=== PATIENT | male | born 1935 | race Caucasian/White ===

== ENCOUNTER 2019-01-12 15:46 | Outpatient (CLI) | END 2019-01-12 15:47 | disposition home or self-care (01) | LOC: RHC-LAB 15:46 | PROVIDERS: ATTEND General Practice | DX: Z01.818 Encounter for other preprocedural examination (principal); Z00.00 Encounter for general adult medical examination without abnormal findings; R05 Cough; E78.5 Hyperlipidemia, unspecified; Z79.899 Other long term (current) drug therapy ==

== ENCOUNTER 2019-01-12 15:52 | Outpatient (CLI) ==
--- NOTE | 2019-01-12 16:16 | DI ---
EXAM: Two views of the chest. History: Cough. Findings: Heart is enlarged with left ventricular configuration. Sternotomy wires. Tortuous thorac ic aorta which may be aneurysmal. No consolidated pneumonia. No pleural fluid and no pneumothorax. 5 mm nodular density within the right upper lung. Impression: 1. Cardiomegaly with left ventricular configuration. 2. Tortuous thoracic aorta which may be aneurysmal. 3. 5 mm nodule within the right upper lung. Recommend chest CT
== END 2019-01-12 15:53 | disposition home or self-care (01) ==
LOC: RAD 15:52
PROVIDERS: ATTEND General Practice
DX: Z01.818 Encounter for other preprocedural examination (principal); R05 Cough; Z00.00 Encounter for general adult medical examination without abnormal findings; E78.5 Hyperlipidemia, unspecified; Z79.899 Other long term (current) drug therapy
CPT/HCPCS: 36415; 80053; 80061; 81001; 85025; 93005; 93010

== ENCOUNTER 2019-01-20 10:35 | Outpatient (CLI) | payer OTHER ==
--- NOTE | 2019-01-20 12:31 | CT ---
EXAM: CT of the chest without contrast History: Right lung nodule. Comparison: Chest radiograph 01/12/2019 Technique: Multiplanar CT images through the thorax were obtained without the administration of IV c ontrast. Findings: Heart is mildly enlarged. Coronary calcifications. Sternotomy wires. No pericardial eff usion. The thoracic aorta is tortuous. 4 cm ascending aortic aneurysm. No axillary lymphadenopathy . No pathologically enlarged mediastinal lymph nodes. Evaluation for hilar lymph nodes is limited d ue to the lack of IV contrast but no bulky adenopathy is seen. There are calcified mediastinal and h ilar lymph nodes. No consolidated pneumonia. No pleural fluid and no pneumothorax. 5 mm calcified nodule within the right upper lobe. This correlates with findings on recent chest radiograph. No carpio spicious lung masses or lung nodules. Within the visualized upper abdomen, status post cholecystectomy. Calcified granulomas within the sp christiano. Small partially visualized cyst within the left kidney. No acute osseous abnormalities. 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 Impression: 1. No acute intrathoracic process. 2. Old granulomatous disease. 3. No suspicious lung masses or lung nodules. 4. Cardiomegaly and coronary artery disease. 5. 4 cm aneurysm of the ascending aorta
== END 2019-01-20 10:36 | disposition home or self-care (01) ==
LOC: RAD 10:35
PROVIDERS: ATTEND General Practice
DX: R91.1 Solitary pulmonary nodule (principal)

== ENCOUNTER 2019-01-26 06:07 | Day surgery (SDC) | payer OTHER ==
[2019-01-26] MEDS: AK-DILATE 10% OPTH SOL OP PRN ×4 (06:20→06:50)
[2019-01-26] MEDS: OCUFEN 0.03% OPTH SOL OP PRN ×3 (06:20→06:35)
[2019-01-26] MEDS: CYCLOGYL 2% OPTH OP PRN ×3 (06:20→06:30)
[2019-01-26] MEDS: TETRACAINE 0.5% UNIT-DOSE OP PRN ×4 (06:20→08:39)
[2019-01-26 06:47] VITALS: TEMP 97.8
[2019-01-26] MEDS ORDERED: DIAMOX PO STA (06:48)
[2019-01-26] MEDS ORDERED: BSS WITH EPINEPHRINE OP ONE (06:48)
[2019-01-26] MEDS ORDERED: LIDOCAINE 1% 20 ML MDV ID STA (06:48)
[2019-01-26] MEDS ORDERED: VERSED ONE (08:15)
[2019-01-26] MEDS ORDERED: LIDOCAINE 1% 20 ML MDV ONE (08:40)
[2019-01-26 11:45] VITALS: BP 152/74
[2019-01-26] MEDS ORDERED: PRED FORTE 1% OP PRN (13:38)
[2019-01-26] MEDS ORDERED: OCUFLOX 0.3% OPTH SOL OP PRN (13:38)
[2019-01-26] MEDS ORDERED: BETADINE OPTH PREP OP ONE (13:38)
[2019-01-26] MEDS ORDERED: ERYTHROMYCIN OP STA (14:16)
[2019-01-26] MEDS ORDERED: MARCAINE 0.5% MDV INJ STA (14:20)
--- NOTE | 2019-01-27 09:13 | OP ---
PREOPERATIVE DIAGNOSIS: CATARACT, CORTICAL PLUS NUCLEAR SCLEROTIC, RIGHT EYE. POSTOPERATIVE DIAGNOSIS: SAME. OPERATION PHACOEMULSIFICATION ASPIRATION OF CATARACT RIGHT EYE. PLACEMENT OF POSTERIOR CHAMBER LENS. PHACO TIME SECONDS AT 39.8 @ 8.0% POWER. LENS MODEL TECSARA [id number]. DIOPTER +18.5D. TECHNIQUE: CLEAR CORNEA. ANESTHESIA: TOPICAL ANESTHESIA W/ANESTHESIA MONITORING. OPERATIVE REPORT: Topical anesthesia consisting of Tetracaine was applied to the cornea and Xylocaine Methyl Paraben free of MFP was injected intracamerally into the anterior chamber. The patient was then brought into the operating room , prepped and draped in the usual ophthalmic manner. A lid speculum was placed and the operating microscope was used. A paracentesis was made at the 3 o' clock position. A clear corneal incision was made just out to the limbus. The anterior chamber was entered just inside the clear cornea. Viscoelastic was injected into the anterior chamber. A capsulotomy was performed with a bent # 27 gauge needle. Phacoemulsification was then performed in the posterior chamber. After completion of the phacoemulsification, residual cortical material was aspirated with the irrigation-aspiration system. The posterior capsule was polished. Viscoelastic was injected into the anterior and posterior chambers to inflate the capsular bag. Lens were placed via an Unfolder system and stabilized in the bag. Viscoelastic was removed from the anterior chamber. The wound was checked for any leakage. The four sponges were removed from the fornix. Topical antibiotic steroid and nonsteroidal drops were also applied to the cornea. A Amado shield was applied. The patient left the operating room in good condition without any complications. INTRAOPERATIVE MEDICATIONS: Xylocaine Methyl Paraben Free MPF MTDD
--- NOTE | 2019-01-27 09:21 | OP ---
PREOPERATIVE DIAGNOSIS: SEVERE PTOSIS ECTROPION OF LEFT LOWER LID BLEPHARITIS POSTOPERATIVE DIAGNOSIS: SAME OPERATION: ENTROPION REPAIR USING TARSAL STRIP AND MEDIAL SPINDLE, LEFT LOWER LID ANESTHESIA: LOCAL. TECHNIQUE: The patient received local anesthetic consisting of 2% Xylocaine mixed with 0.5% Epinephrine and Wydase was infiltrated into the left lower lid and lateral canthus. The skin was prepped with Betadine. Lateral canthotomy was performed and transection of the inferior canthal tendon was performed to marbleize the lateral tarsal strip. Medial spindle was also performed at 5 mm below the inferior punctum. Tarsal strip was trimmed and excess was transected. The strip was then sutured with 4-0 Vicryl on P-2 needle to the inner periosteum of the lateral canthus. The medial spindle defect was closed with 5-0 Chromic suture with the needle exiting on the skin side. The subcuticular layer on the lateral canthus was closed with 5-0 Vicryl. Excess skin was excised and incision closed with 6-0 Plain. The medial spindle sutures were tied over a bolster and the 3-1-1 knot. The excess was trimmed. Maxitrol ointment was applied to incisions. The patient left the operating room in good condition without any complications. Estimated blood loss less than 5 cc. MTDD
== END 2019-01-26 09:59 | disposition home or self-care (01) ==
LOC: SURG 06:07
PROVIDERS: ATTEND Ophthalmology
DX: H25.13 Age-related nuclear cataract, bilateral (principal); H25.013 Cortical age-related cataract, bilateral; H02.135 Senile ectropion of left lower eyelid; H02.403 Unspecified ptosis of bilateral eyelids; H01.001 Unspecified blepharitis right upper eyelid; H01.002 Unspecified blepharitis right lower eyelid; H01.004 Unspecified blepharitis left upper eyelid; H01.005 Unspecified blepharitis left lower eyelid

== ENCOUNTER 2019-02-23 07:46 | Day surgery (SDC) | payer OTHER ==
[2019-02-23] MEDS: CYCLOGYL 2% OPTH OP PRN ×3 (09:15→09:25)
[2019-02-23] MEDS: TETRACAINE 0.5% UNIT-DOSE OP PRN ×4 (09:15→10:49)
[2019-02-23] MEDS: OCUFEN 0.03% OPTH SOL OP PRN ×4 (09:16→11:06)
[2019-02-23] MEDS ORDERED: DIAMOX PO STA (09:27)
[2019-02-23] MEDS ORDERED: ZESTRIL PO STA (09:30)
[2019-02-23] MEDS: LIDOCAINE 1% 20 ML MDV ID STA ×2 (09:35→10:50)
[2019-02-23 09:55] VITALS: TEMP 97.8
[2019-02-23] MEDS ORDERED: VERSED ONE (10:45)
[2019-02-23] MEDS ORDERED: DIAMOX ONE (11:20)
[2019-02-23 13:09] VITALS: BP 132/68
--- NOTE | 2019-02-23 13:31 | OP ---
PREOPERATIVE DIAGNOSIS:VISUALLY SIGNIFICANT CATARACT, LEFT EYE. POSTOPERATIVE DIAGNOSIS: SAME. OPERATION PHACOEMULSIFICATION ASPIRATION OF CATARACT LEFT EYE. PLACEMENT OF POSTERIOR CHAMBER LENS. PHACO TIME 48.1 SECONDS AT 5.0% POWER. LENS MODEL TECSARA [id number]. DIOPTER +18.5D. TECHNIQUE: CLEAR CORNEA. ANESTHESIA: TOPICAL ANESTHESIA W/ANESTHESIA MONITORING. OPERATIVE REPORT: Topical anesthesia consisting of Tetracaine was applied to the cornea and Xylocaine Methyl Paraben free of MFP was injected intracamerally into the anterior chamber. The patient was then brought into the operating room , prepped and draped in the usual ophthalmic manner. A lid speculum was placed and the operating microscope was used. A paracentesis was made at the 3 o' clock position. A clear corneal incision was made just out to the limbus. The anterior chamber was entered just inside the clear cornea. Viscoelastic was injected into the anterior chamber. A capsulotomy was performed with a bent # 27 gauge needle. Phacoemulsification was then performed in the posterior chamber. After completion of the phacoemulsification, residual cortical material was aspirated with the irrigation-aspiration system. The posterior capsule was polished. Viscoelastic was injected into the anterior and posterior chambers to inflate the capsular bag. Lens were placed via an Unfolder system and stabilized in the bag. Viscoelastic was removed from the anterior chamber. The wound was checked for any leakage. The four sponges were removed from the fornix. Topical antibiotic steroid and nonsteroidal drops were also applied to the cornea. A Amado shield was applied. The patient left the operating room in good condition without any complications. INTRAOPERATIVE MEDICATIONS: Xylocaine Methyl Paraben Free MPF MTDD
== END 2019-02-23 11:50 | disposition home or self-care (01) ==
LOC: SURG 07:46
PROVIDERS: ATTEND Ophthalmology
DX: H25.12 Age-related nuclear cataract, left eye (principal); H25.012 Cortical age-related cataract, left eye; Z96.1 Presence of intraocular lens

== ENCOUNTER 2021-12-24 20:13 | Inpatient (IN) ==
[2021-12-24] MEDS ORDERED: LACTATED RINGERS 1,000 ML IV STA (20:41)
--- NOTE | 2021-12-24 20:55 | ED.PDOC ---
General ED Provider: Dr. ALEIDA CRUZ Chief Complaint: Weakness Stated Complaint: Patient is an 86 year old male [place] who comes to the ER with weakness for few days. States he has had urinary incontinence. Lives alone but son comes to check up on him. He has not been eating well over the last few weeks. Time Seen by Provider: 12/24/21 20:37 Mode of Arrival: Wheelchair Information Source: Patient Primary Care Provider: LETTY LARES MD Nursing and Triage Documentation Reviewed and Agree: Yes Does patient meet sepsis criteria?: No System Inflammatory Response Syndrome: Not Applicable Sepsis Protocol: For patient's 13 years and over: Temp is 96.8 and below OR 101 and greater Pulse >90 BPM Resp >20/minute Acutely Altered Mental Status Are patient's symptoms suggestive of a new infection, such as: -Pneumonia -Skin, Soft Tissue -Endocarditis -UTI -Bone, Joint Infection -Implantable Device -Acute Abdominal Infection -Wound Infection -Meningitis -Blood Stream Catheter Infection -Unknown Review of Systems Review Of Systems Constitutional: Reports Weakness and Loss of appetite Eyes: Reports No symptoms Ears, Nose, Mouth, Throat: Reports No symptoms Respiratory: Reports No symptoms Cardiac: Reports No symptoms GI: Reports No symptoms : Reports Incontinence Musculoskeletal: Reports No symptoms Skin: Reports No symptoms Neurological: Reports No symptoms Endocrine: Reports No symptoms Hematologic/Lymphatic: Reports No symptoms All Other Systems: Reviewed and Negative [facility] Medical History Hypertension Thyroid dysfunction Social History Smoking and tobacco status: Never smoker Alcohol intake: never Substance use type: does not use Surgical History History of heart surgery History of prostatectomy Physical Exam Physical Exam Appearance: Reports Ill-appearing Ill-appearing: Mild Pain Distress: None Eyes: Reports SOCRATES and EOMI ENT: Reports Nose normal, Oropharynx normal (poor dentiation ) and Dry mucosa Neck: Supple Respiratory: Reports Airway patent, Breath sounds clear and Breath sounds equal Cardiovascular: Reports RRR, Pulses normal and No rub GI/: Reports Soft, Nontender, No masses and Bowel sounds normal Musculoskeletal: Reports Normal strength, ROM intact, No edema, No calf tender ness and Limited ROM Skin: Reports Warm, Dry and Normal color Neurological: Reports Motor intact, Alert and Oriented Psychiatric: Reports Affect appropriate and Mood appropriate Critical Care Note Critical Care Note Total Critical Care Time (mins): 30 Course Course Hematology/Chemistry: 12/24/21 20:55 12/24/21 20:55 Orders, Labs, Meds: Lab Review 12/24/21 12/24/21 12/24/21 20:55 20:55 20:55 WBC 12.94 H RBC 4.44 L Hgb 13.7 L Hct 39.7 L MCV 89.4 MCH 30.9 MCHC 34.5 RDW Coeff of Noah 12.9 Plt Count 208 Immature Gran % (Auto) 0.9 Neut % (Auto) 83.1 H Lymph % (Auto) 9.5 L [place] % (Auto) 6.2 Eos % (Auto) 0.1 Baso % (Auto) 0.2 Neut # (Auto) 10.8 H Lymph # (Auto) 1.2 [place] # (Auto) 0.8 Eos # (Auto) 0.0 Baso # (Auto) 0.0 Immature Gran # (Auto) 0.1 Sodium 131.8 L Potassium 2.78 L* Chloride 93.7 L Carbon Dioxide 30.6 H Anion Gap 10.28 BUN 21.0 H Creatinine 1.09 Estimated GFR (MDRD) 64.00 BUN/Creatinine Ratio 19.26 Glucose 133.9 H Lactic Acid Calcium 9.51 Total Bilirubin 1.11 AST 90.6 H ALT 63.6 H Alkaline Phosphatase 112.7 Total Creatine Kinase Troponin I Total Protein 6.44 Albumin 3.21 L Globulin 3.23 Albumin/Globulin Ratio 0.99 Procalcitonin 0.43 H 12/24/21 12/24/21 20:55 20:55 WBC RBC Hgb Hct MCV MCH MCHC RDW Coeff of Noah Plt Count Immature Gran % (Auto) Neut % (Auto) Lymph % (Auto) [place] % (Auto) Eos % (Auto) Baso % (Auto) Neut # (Auto) Lymph # (Auto) [place] # (Auto) Eos # (Auto) Baso # (Auto) Immature Gran # (Auto) Sodium Potassium Chloride Carbon Dioxide Anion Gap BUN Creatinine Estimated GFR (MDRD) BUN/Creatinine Ratio Glucose Lactic Acid 1.47 Calcium Total Bilirubin AST ALT Alkaline Phosphatase Total Creatine Kinase 30.9 L Troponin I 0.040 Total Protein Albumin Globulin Albumin/Globulin Ratio Procalcitonin Orders Category Date Time Status ADMIT PATIENT INPATIENT .TO MEDSURG (MONITORED BED) ADMISSION 12/24/21 22:08 Ordered EKG-(ED ONLY) Stat CARDIO 12/24/21 21:28 Ordered ACTIVITY .Up With Assistance CARE 12/24/21 22:08 Ordered INTAKE & OUTPUT Q8HR CARE 12/24/21 22:08 Ordered TELEMETRY MONITORING TELE CARE 12/24/21 22:08 Ordered VITAL SIGNS Q4HR CARE 12/24/21 22:09 Ordered CARDIAC DIET DIETARY 12/24/21 Breakfast Ordered ED APPLY O2 .ONCE EMERGENCY 12/24/21 20:41 Active ED MELTING SUPERVISOR APPLIED .ONCE EMERGENCY 12/24/21 20:41 Active ED IV/MEDIPORT/POWERPORT .ONCE EMERGENCY 12/24/21 20:42 Active ED VITAL SIGNS Q1HR EMERGENCY 12/24/21 20:41 Active BASIC METABOLIC PANEL DAILY@0600 LAB 12/25/21 06:00 Ordered BASIC METABOLIC PANEL DAILY@0600 LAB 12/26/21 06:00 Ordered BLOOD CULTURE (ED ONLY) Stat LAB 12/24/21 20:55 Received CBC W/ AUTO DIFF DAILY@0600 LAB 12/25/21 06:00 Ordered CBC W/ AUTO DIFF DAILY@0600 LAB 12/26/21 06:00 Ordered CBC W/ AUTO DIFF Stat LAB 12/24/21 20:55 Completed CK [CREATINE KINASE] Stat LAB 12/24/21 20:55 Completed COMPREHENSIVE METABOLIC PANEL Stat LAB 12/24/21 20:55 Completed COVID-19 ANTIGEN TEST Stat LAB 12/24/21 Ordered LACTIC ACID Stat LAB 12/24/21 20:55 Completed PROCALCITONIN Stat LAB 12/24/21 20:55 Completed TROPONIN I Stat LAB 12/24/21 20:55 Completed URINALYSIS C & S IF INDICATED Stat LAB 12/24/21 20:41 Uncollected 0.9 % Sodium Chloride [Saline Flush] MEDS 12/24/21 20:41 Active 1 syr IVF PRN PRN Acetaminophen [Tylenol] MEDS 12/24/21 22:08 Ordered 650 mg PO Q4H PRN Enoxaparin Sodium [Lovenox] MEDS 12/25/21 09:00 Ordered 40 mg SUBCUT DAILY Ondansetron HCl/Pf [Zofran 4 mg/2 ml] MEDS 12/24/21 22:08 Ordered 4 mg IVP Q6H PRN Potassium Chloride [K-Dur] MEDS 12/24/21 21:27 Discontinued 20 meq PO ONCE STA Potassium Chloride [Potassium Chloride 20 Meq/100 ml MEDS 12/24/21 21:44 Active Premix] 20 meq in 100 ml IV ONCE Potassium Chloride in 0.9%NaCl [Sodium Chloride 0.9%- MEDS 12/24/21 22:30 Ordered KCl 20 Meq] 1,000 ml IV 125 mls/hr Ringers Lactated Solution [Lactated Ringers] 1,000 ml MEDS 12/24/21 20:41 Discontinued IV BOLUS RESUSCITATION STATUS Routine OTHERS 12/24/21 22:08 Ordered CHEST, 1V AP ONLY Stat RADS 12/24/21 20:41 Completed Medications Generic Name Dose Route Start Last Admin Trade Name Freq PRN Reason Stop Dose Admin Potassium Chloride 20 meq in 100 mls @ 50 mls/hr 12/24/21 21:44 Potassium Chloride 20 Meq/100 Ml Premix IV 12/24/21 23:43 ONCE STA Sodium Chloride 1 syr 12/24/21 20:41 0.9% Sodium Chloride 10 Ml Disp.Syrin IVF PRN PRN To flush IV Discontinued Medications Generic Name Dose Route Start Last Admin Trade Name Freq PRN Reason Stop Dose Admin Lactated Ringer's 1,000 mls @ 1,000 mls/hr 12/24/21 20:41 Lactated Ringers IV 12/24/21 21:40 BOLUS STA Potassium Chloride 20 meq 12/24/21 21:27 12/24/21 21:42 Potassium Chloride 20 Meq Tab PO 12/24/21 21:28 20 meq ONCE STA Administration Vital Signs: Temp Pulse Resp BP Pulse Ox 12/24/21 20:14 98.1 F 63 20 107/68 93 L Discharge Plan Discharge Patient Disposition: ADMITTED INPATIENT Discharge Problem: Acute hypokalemia, Muscle weakness Prescriptions: No Action levothyroxine 137 MCG tablet 137 mcg PO DAILY 0RF Rx Instructions: Take 1 tablet PO daily. simvastatin 40 MG tablet 60 mg PO DAILY 0RF Rx Instructions: Take 1 and 1/2 tablet daily. Carvedilol 12.5 MG tablet 12.5 mg PO DAILY 0RF Rx Instructions: Take 1/2 tablet twice daily. lisinopril 20 MG tablet 10 mg PO DAILY 0RF Rx Instructions: Take 1/2 tablet daily. aspirin [Aspir-Low] 81 MG tablet,delayed release (DR/EC) 1 tab PO DAILY 0RF ED Provider: ALEIDA CRUZ Condition: Fair Physician Progress Note: []
[2021-12-24 21:04] LABS: BASOPHILS % (AUTO) 0.2 % (0.0-3.0); EOSINOPHILS % (AUTO) 0.1 % (0.0-7.0); HEMATOCRIT 39.7 % (42.0-52.0); HEMOGLOBIN 13.7 g/dl (14.0-18.0); IMMATURE GRANULOCYTE # (AUTO) 0.1 (0.0-1.0); IMMATURE GRANULOCYTE % (AUTO) 0.9 % (0.0-5.0); LYMPHOCYTES # (AUTO) 1.2 K/uL (0.60-3.4); LYMPHOCYTES % (AUTO) 9.5 (10.0-50.0); MEAN CORPUSCULAR HEMOGLOBIN 30.9 pg (27.0-31.0); MEAN CORPUSCULAR HGB CONC 34.5 (31.8-35.4); MEAN CORPUSCULAR VOLUME 89.4 fl (80.0-94.0); MONOCYTES # (AUTO) 0.8 K/uL (0.4-2.0); MONOCYTES % (AUTO) 6.2 (0-10); NEUTROPHILS # (AUTO) 10.8 K/ul (2.0-6.9); NEUTROPHILS % (AUTO) 83.1 % (42.2-75.2); PLATELET COUNT 208 10^3/uL (140-440); RDW COEFFICIENT OF VARIATION 12.9 % (11.6-14.8); RED BLOOD COUNT 4.44 10^6/ul (4.70-6.10); WHITE BLOOD COUNT 12.94 K/ul (4.2-10.2)
--- NOTE | 2021-12-24 21:14 | DI ---
EXAM: Single-view chest HISTORY: Weakness COMPARISON: Two-view chest 01/12/2019 FINDINGS: There is stable cardiomegaly. Atherosclerotic changes are seen involving the aortic arch. Sternal wire sutures noted. No consolidation or effusion. IMPRESSION: The no evidence of active pulmonary disease. Prior mediastinotomy
[2021-12-24 21:16] LABS: ALANINE AMINOTRANSFERASE 63.6 U/L (0-50); ALBUMIN 3.21 g/dL (3.5-5.0); ALKALINE PHOSPHATASE 112.7 U/L (56-119); ASPARTATE AMINO TRANSFERASE 90.6 U/L (17-59); BILIRUBIN,TOTAL 1.11 mg/dL (0.2-1.3); CALCIUM 9.51 mg/dL (8.4-10.2); CARBON DIOXIDE 30.6 mmol/L (22-30.0); CHLORIDE 93.7 mmol/L (98-107); CREATININE 1.09 mg/dL (0.60-1.10); GLUCOSE 133.9 mg/dL (74-106); SODIUM 131.8 mmol/L (134.5-145); TOTAL PROTEIN 6.44 g/dL (6.3-8.2)
[2021-12-24 21:17] LABS: POTASSIUM 2.78 mmol/L (3.5-5.1)
[2021-12-24] MEDS ORDERED: POTASSIUM CHLORIDE 10 MEQ/100 ML PREMIX 10 MEQ/100 ML BAG IV STA (21:27)
[2021-12-24] MEDS ORDERED: K-DUR PO STA (21:27)
[2021-12-24 21:36] LABS: CREATINE KINASE 30.9 U/L (55-170)
[2021-12-24] MEDS ORDERED: POTASSIUM CHLORIDE 20 MEQ/100 ML PREMIX 20 MEQ/100 ML BAG IV STA (21:44)
[2021-12-24 21:48] LABS: TROPONIN I 0.04 ng/ml (0.0000-0.120)
[2021-12-24] MEDS ORDERED: TYLENOL PO PRN (22:08)
[2021-12-24] MEDS ORDERED: ZOFRAN 4 MG/2 ML IVP PRN (22:08)
[2021-12-25] MEDS: SODIUM CHLORIDE 0.9%-KCL 20 MEQ 1,000 ML IV SCH ×3 (00:35→17:19)
[2021-12-25] MEDS: ROCEPHIN 1 GM/50 ML D5W 1 GM/50 ML BAG IV SCH ×2 (00:35→08:23)
[2021-12-25 00:46] VITALS: BMI 31.4
[2021-12-25 05:44] LABS: BASOPHILS % (AUTO) 0.3 % (0.0-3.0); EOSINOPHILS % (AUTO) 0.1 % (0.0-7.0); HEMATOCRIT 35.9 % (42.0-52.0); HEMOGLOBIN 12.3 g/dl (14.0-18.0); IMMATURE GRANULOCYTE # (AUTO) 0.1 (0.0-1.0); IMMATURE GRANULOCYTE % (AUTO) 1.1 % (0.0-5.0); LYMPHOCYTES # (AUTO) 1.7 K/uL (0.60-3.4); LYMPHOCYTES % (AUTO) 16.1 (10.0-50.0); MEAN CORPUSCULAR HEMOGLOBIN 31.2 pg (27.0-31.0); MEAN CORPUSCULAR HGB CONC 34.3 (31.8-35.4); MEAN CORPUSCULAR VOLUME 91.1 fl (80.0-94.0); MONOCYTES # (AUTO) 0.8 K/uL (0.4-2.0); MONOCYTES % (AUTO) 7.5 (0-10); NEUTROPHILS # (AUTO) 7.8 K/ul (2.0-6.9); NEUTROPHILS % (AUTO) 74.9 % (42.2-75.2); PLATELET COUNT 200 10^3/uL (140-440); RDW COEFFICIENT OF VARIATION 12.9 % (11.6-14.8); RED BLOOD COUNT 3.94 10^6/ul (4.70-6.10); WHITE BLOOD COUNT 10.36 K/ul (4.2-10.2)
[2021-12-25 05:59] LABS: BLOOD UREA NITROGEN 20.6 mg/dL (9-20); CALCIUM 9.15 mg/dL (8.4-10.2); CARBON DIOXIDE 30.9 mmol/L (22-30.0); CHLORIDE 97.1 mmol/L (98-107); CREATININE 0.9 mg/dL (0.60-1.10); MAGNESIUM 2.2 mg/dL (1.6-2.3); POTASSIUM 3.11 mmol/L (3.5-5.1); SODIUM 133.3 mmol/L (134.5-145)
[2021-12-25] MEDS: K-DUR PO SCH ×2 (08:22→16:53)
[2021-12-25] MEDS: LOVENOX SUBCUT SCH (08:23)
[2021-12-25 08:57] LABS: BILIRUBIN,URINE 1+ (NEGATIVE); CLARITY,URINE Cloudy (CLEAR); COLOR,URINE Yellow (YELLOW); GLUCOSE, URINE (UA) Negative (NEGATIVE); KETONES,URINE Negative (NEGATIVE); LEUKOCYTE ESTERASE ,URINE 1+ (NEGATIVE); NITRITE,URINE Positive (NEGATIVE); PH,URINE 5.5 (5-9); PROTEIN,URINE 1+ (NEGATIVE); URINE, BLOOD Trace-lysed (NEGATIVE)
[2021-12-25] MEDS ORDERED: LEVOTHYROXINE 137 MCG PO SCH (09:00)
[2021-12-25] MEDS ORDERED: CARVEDILOL 12.5 MG PO SCH (09:00)
[2021-12-25] MEDS ORDERED: ZOCOR PO SCH (09:00)
[2021-12-25] MEDS ORDERED: ZESTRIL PO SCH (09:00)
[2021-12-25] MEDS ORDERED: COREG PO SCH (09:00)
[2021-12-25 09:04] LABS: URINE RBC, MICROSCOPIC 0-2 (0-2); URINE WBC, MICROSCOPIC 30-50 (0-2)
[2021-12-25 09:05] LABS: BACTERIA,URINE 3+ (NOT PRESENT)
[2021-12-25] MEDS: SYNTHROID PO SCH ×2 (09:29→09:30)
[2021-12-25] MEDS: ZOCOR PO SCH (09:29)
[2021-12-25] MEDS: ASPIRIN EC PO SCH (09:29)
[2021-12-25] MEDS: COREG PO SCH (16:48)
[2021-12-25] MEDS: ZESTRIL PO SCH (20:18)
[2021-12-26] MEDS: SODIUM CHLORIDE 0.9%-KCL 20 MEQ 1,000 ML IV SCH ×3 (00:38→14:03)
[2021-12-26 05:32] LABS: BASOPHILS % (AUTO) 0.4 % (0.0-3.0); EOSINOPHILS % (AUTO) 0.4 % (0.0-7.0); HEMATOCRIT 36.2 % (42.0-52.0); HEMOGLOBIN 12.3 g/dl (14.0-18.0); IMMATURE GRANULOCYTE # (AUTO) 0.1 (0.0-1.0); IMMATURE GRANULOCYTE % (AUTO) 1.2 % (0.0-5.0); LYMPHOCYTES # (AUTO) 1.5 K/uL (0.60-3.4); LYMPHOCYTES % (AUTO) 15.2 (10.0-50.0); MEAN CORPUSCULAR HEMOGLOBIN 30.8 pg (27.0-31.0); MEAN CORPUSCULAR VOLUME 90.7 fl (80.0-94.0); MONOCYTES # (AUTO) 0.7 K/uL (0.4-2.0); MONOCYTES % (AUTO) 6.7 (0-10); NEUTROPHILS # (AUTO) 7.7 K/ul (2.0-6.9); NEUTROPHILS % (AUTO) 76.1 % (42.2-75.2); PLATELET COUNT 239 10^3/uL (140-440); RDW COEFFICIENT OF VARIATION 13.2 % (11.6-14.8); RED BLOOD COUNT 3.99 10^6/ul (4.70-6.10); WHITE BLOOD COUNT 10.15 K/ul (4.2-10.2)
[2021-12-26 05:42] LABS: BLOOD UREA NITROGEN 12.6 mg/dL (9-20); CALCIUM 8.66 mg/dL (8.4-10.2); CARBON DIOXIDE 27.8 mmol/L (22-30.0); CHLORIDE 102.3 mmol/L (98-107); CREATININE 0.82 mg/dL (0.60-1.10); GLUCOSE 108.2 mg/dL (74-106); POTASSIUM 3.17 mmol/L (3.5-5.1); SODIUM 133.9 mmol/L (134.5-145)
[2021-12-26] MEDS: SYNTHROID PO SCH ×2 (05:46)
--- NOTE | 2021-12-26 07:54 | PCM.PROG ---
Date Seen by Provider: 12/26/21 Time Seen by Provider: 07:51 Subjective: pt admitted for weakness is improving, treating uti w/ rocephin Objective: Vitals: T=98.8 F, P=57, R=16, SL=639/87, SPO2=97 HEENT: []conjunctiva clear Neck: []supple Lungs: [] clear CVS: []RRR Abdomen: []soft and nontender Extremities: []mitch but weak Neurological: []alert and oriented Skin: []warm and dry Lab/Tests/Diagnostic Imaging: [] K+ 3.1 getting po potassium 20meq bid Plan: decrease iv rate from 125/hr to 75/hr vss continue present medical regimen care to Dr Ivey at 19:00
--- NOTE | 2021-12-26 08:52 | PCM.CONS ---
CONSULTING PROVIDER: Dr. JAN BRO ATTENDING PROVIDER: Dr. SAPPHIRE CHAMBERLAIN MD DATE OF SERVICE: 12/26/21 SUBJECTIVE: This 86 year old /WHITE M was hospitalized 12/24/21 with hypokalemia, gastroenteritis symptoms with diarrhea. The patient's condition has improved. He was referred for Bradycardia. The patient's dose of Coreg has been reduced and Lisinopril dose has been increased. REVIEW OF SYSTEMS: CONSTITUTIONAL: No night sweats. No fatigue, malaise, lethargy. No fever or chills. HEENT: Eyes: No visual changes. No eye pain. No eye discharge. ENT: No runny nose. No epistaxis. No sinus pain. No odynophagia. No congestion. Hard of hearing. RESPIRATORY: No cough, no congestion. No hemoptysis. No shortness of breath. CARDIOVASCULAR: No angina symptoms. No CHF symptoms. No atypical chest pain for CAD. No palpitations. No orthopnea. GASTROINTESTINAL: No abdominal pain. No nausea or vomiting. No diarrhea or constipation. No hematemesis. No hematochezia. GENITOURINARY: No urgency. No frequency. No dysuria. No hematuria. No obstructive symptoms. No discharge. No pain. No significant abnormal bleeding. MUSCULOSKELETAL: No musculoskeletal pain; no joint swelling. NEUROLOGICAL: Awake, alert, oriented to time, place and person. No headache. No neck pain. No syncope. No seizures. No dizziness. PSYCHIATRIC: Not anxious. No depression. No suicidal thoughts. No homicidal thoughts. SKIN: No rash. No lesions. No wounds. ENDOCRINE: No unexplained weight loss. No weight gain. HEMATOLOGIC/LYMPHATIC: No anemia. No purpura. No petechiae. No prolonged or excessive bleeding. No palpable lymph nodes. PHYSICAL EXAMINATION: GENERAL: The patient is awake, alert and oriented, lying in bed in no distress. VITAL SIGNS: Temperature 98.8 F, Pulse 57, Respiratory Rate 16, BP 159/87, Pulse Ox 97% HEENT: Head normocephalic, atraumatic. Eyes: Extraocular muscles are intact. Pupils are equal, round and reactive to light and accommodation. Ears: No lesions. Nose appeared normal. Throat: No exudate or erythema. NECK: Supple. No JVD, no carotid bruit. No lymphadenopathy or thyromegaly. LUNGS: Clear to auscultation. Percussion note normal. Chest symmetrical. HEART: S1, S2, no S3. No murmurs. No cyanosis or clubbing. No ascites. Pulses: Feeble pedal pulses. ABDOMEN: Soft. Non-tender. Bowel sounds active. No CVA tenderness. No mass felt. EXTREMITIES: No edema. Full range of motion of all extremities, equal. NEUROLOGIC: No focal deficit. Cranial nerves II through XII are grossly intact. No headache, no double vision or headache. SKIN: Warm and dry. Intact. Turgor-normal. LYMPHATIC: No palpable lymph nodes/no lymphedema. MUSCULOSKELETAL: Normal joints with no swelling. Muscle tone is normal. LAB REVIEW: 12/26/21 04:56 12/26/21 04:56 12/26/21 04:56: Sodium 133.9 L, Potassium 3.17 L, Chloride 102.3, Carbon Dioxide 27.8, Anion Gap 6.97, BUN 12.6, Creatinine 0.82, Estimated GFR (MDRD) 89.00, BUN/Creatinine Ratio 15.36, Glucose 108.2 H, Calcium 8.66 12/26/21 04:56: WBC 10.15, RBC 3.99 L, Hgb 12.3 L, Hct 36.2 L, MCV 90.7, MCH 30.8, MCHC 34.0, RDW Coeff of Noah 13.2, Plt Count 239, Immature Gran % (Auto) 1.2, Neut % (Auto) 76.1 H, Lymph % (Auto) 15.2, [place] % (Auto) 6.7, Eos % (Auto) 0.4, Baso % (Auto) 0.4, Neut # (Auto) 7.7 H, Lymph # (Auto) 1.5, [place] # (Auto) 0.7, Eos # (Auto) 0.0, Baso # (Auto) 0.0, Immature Gran # (Auto) 0.1 12/25/21 15:50: Free T4 2.28 H 12/25/21 08:38: Urine Color Yellow, Urine Clarity Cloudy, Urine pH 5.5, Ur Specific [place] 1.015, Urine Protein 1+ H, Urine Glucose (UA) Negative, Urine Ketones Negative, Urine Blood Trace-lysed, Urine Nitrite Positive H, Urine Bilirubin 1+ H, Urine Urobilinogen 1.0 H, Ur Leukocyte Esterase 1+ H, Urine Microscopic RBC 0-2, Urine Microscopic WBC 30-50, Ur Squamous Epith Cells Not Reportable, Urine Bacteria 3+ 12/25/21 04:47: 25-OH Vitamin D Total 17.0 L 12/25/21 04:47: Vitamin B12 278 12/25/21 04:47: Thyroxine (T4) 9.0 12/25/21 04:47: TSH 1.030 ASSESSMENT: 1. Bradycardia borderline supports blood pressure. No evidence of any pauses of more than 2 seconds. 2. Hypertension, borderline 3. CABG 4. Hypokalemia Please see below. RECOMMENDATIONS/PLAN: 1. Echo before discharge 2. Add Norvasc at night 3. Continue the rest of the medications 4. Lipid profile 5. The patient when discharged to be seen in the office. Plan and coordination of the patient's care discussed in the presence of Latcher and Nurse. CONDITION: Stable. SCRIBED BY: MARK BAILEY [employer] Service Team Member scribed while in presence of service performed by Dr. JAN BRO on 12/26/21 ([id number])
--- NOTE | 2021-12-26 09:39 | CONS ---
DATE OF CONSULTATION: 12/25/21 REASON FOR CONSULTATION: Bradycardia HISTORY OF PRESENT ILLNESS: 86 year old white male hospitalized on 12/24/21 with weakness, past 3-4 days of diarrhea and urinary incontinence. He had not got up for 3-4 days. A neighbor Gris who is an WATCH ASSEMBLY INSPECTOR. The patient had been very active but last couple of weeks has been feeling weak and tired. On further work up in the emergency room the patient was noted to have leukocytosis, mild and Potassium was 2.7, creatinine was 1.09 with BUN of 21 otherwise all the rest of the labs are acceptable and negative including Lactic acid and procalcitonin. I checked the patient on 12/25/21 and she he was feeling fine. He says that his appetite is coming back, hard of hearing. REVIEW OF SYSTEMS: CONSTITUTIONAL: No night sweats. No fatigue, malaise, lethargy. No fever or chills. Weak. HEENT: Eyes: No visual changes. No eye pain. No eye discharge. ENT: No sinus drainage. No epistaxis. No sinus pain. No sore throat. No odynophagia. No ear pain. No congestion. RESPIRATORY: No cough, no congestion. No hemoptysis. No shortness of breath. CARDIOVASCULAR: No angina symptoms. No CHF symptoms. No atypical chest pain for CAD. No palpitations. No orthopnea. GASTROINTESTINAL: No abdominal pain. No nausea or vomiting. No diarrhea or constipation. No hematemesis. No hematochezia. GENITOURINARY: No urgency. No frequency. No dysuria. No hematuria. No obstructive symptoms. No discharge. No pain. No significant abnormal bleeding. MUSCULOSKELETAL: No musculoskeletal pain. No joint swelling. NEUROLOGICAL: No headache. No neck pain. No syncope. No seizures. No dizziness. PSYCHIATRIC: Not anxious. No depression. No suicidal thoughts. No homicidal thoughts. SKIN: No rash. No lesions. No wounds. ENDOCRINE: No unexplained weight loss. No weight gain. HEMATOLOGIC/LYMPHATIC: No anemia. No purpura. No petechiae. No prolonged or excessive bleeding. No palpable lymph nodes. MEDICATIONS: Carvedilol Levothyroxine Lisinopril Simvastatin Aspirin ALLERGIES: Plavix PAST MEDICAL HISTORY: History of dyslipidemia Hypotension Hypothyroidism SOCIAL/PERSONAL/FAMILY HISTORY: Primary care was Dr. Adair, he retired and after that he hasn't gone anywhere except for [facility] that follows him. The patient is nonsmoker. No alcohol abuse. PHYSICAL EXAMINATION: VITAL SIGNS: Temperature 98.3, pulse 56, respiratory rate 18, blood pressure 149/86 and pulse ox 99%. HEENT: Head normocephalic, atraumatic. Eyes: Extraocular muscles are intact. Pupils are equal, round and reactive to light and accommodation. Ears: No lesions. Nose appeared normal. Throat: No exudate or erythema. NECK: Supple. No JVD, no carotid bruit. No lymphadenopathy or thyromegaly. LUNGS: Decreased breath sounds but clear to auscultation. Percussion note normal. Chest symmetrical. HEART: S1, S2, no S3. No murmurs. No cyanosis or clubbing. No ascites. Pulses: Dorsalis pedis and posterior tibial pulses +2 bilaterally. ABDOMEN: Soft. Nontender. Bowel sounds active. No CVA tenderness. No mass felt. EXTREMITIES: No edema. Full range of motion of all extremities, equal. NEUROLOGIC: No focal deficit. Cranial nerves II through XII are grossly intact. No headache, no double vision or headache. SKIN: Not dry. Intact. Turgor - normal. LYMPHATIC: No palpable lymph nodes/no lymphedema. MUSCULOSKELETAL: Normal joints with no swelling. Muscle tone is normal. LABS: Hgb 12, hct 35, WBC 10,000 normal differential, creatinine 0.9, BUN 20, potassium 3.1 ASSESSMENT: 1. Hypokalemia seems to be resolving,Potassium was 2.7 yesterday. 2. Dehydration seems to be resolving with improving in creatinine and BUn 3. Bradycardia sinus. He is taken off Carvedilol will start half the dose and he was on before 3.125 twice a day and increase Lisinopril to 20mg twice a day. RECOMMENDATIONS: 1. Echo to be done for LV function 2. The patient's grandson lives near by him. He lives by himself. Taken care of by the neighbor. Does all activity of daily living 3. Check T4 TSH CONDITION: Stable. Thanks for referral, will follow. [facility]
[2021-12-26] MEDS: ROCEPHIN 1 GM/50 ML D5W 1 GM/50 ML BAG IV SCH (09:40)
[2021-12-26] MEDS: ASPIRIN EC PO SCH (09:41)
[2021-12-26] MEDS: K-DUR PO SCH ×2 (09:41→17:19)
[2021-12-26] MEDS: COREG PO SCH ×2 (09:41→17:19)
[2021-12-26] MEDS: ZOCOR PO SCH (09:43)
[2021-12-26] MEDS: ZESTRIL PO SCH ×2 (09:43→20:36)
[2021-12-26] MEDS: LOVENOX SUBCUT SCH (09:43)
[2021-12-27] MEDS: SODIUM CHLORIDE 0.9%-KCL 20 MEQ 1,000 ML IV SCH ×2 (00:15→13:41)
[2021-12-27] MEDS: SYNTHROID PO SCH ×2 (05:37)
[2021-12-27] MEDS: ZESTRIL PO SCH ×3 (05:37→21:14)
[2021-12-27] MEDS: ASPIRIN EC PO SCH (08:36)
[2021-12-27] MEDS: ROCEPHIN 1 GM/50 ML D5W 1 GM/50 ML BAG IV SCH (08:36)
[2021-12-27] MEDS: LOVENOX SUBCUT SCH (08:36)
[2021-12-27] MEDS: K-DUR PO SCH ×2 (08:37→17:26)
[2021-12-27] MEDS: COREG PO SCH ×2 (08:37→17:27)
[2021-12-27] MEDS: ZOCOR PO SCH (08:37)
--- NOTE | 2021-12-27 10:17 | PCM.PROG ---
Date Seen by Provider: 12/27/21 Time Seen by Provider: 10:15 Subjective: improving weakness Objective: Vitals: T=99.0 F, P=55, R=18, HD=446/95, SPO2=97 HEENT: []conjunctiva clear Neck: []supple Lungs: [] no respiratory distress CVS: []RRR Abdomen: []nondistended Extremities: []mitch Neurological: []alert and oriented Skin: []pink Lab/Tests/Diagnostic Imaging: [] Plan: assess K+, WBC, continue iv ns 75cc/hr, monitor BP care to Dr Ivey at 19:00
[2021-12-27] MEDS ORDERED: CATAPRES PO ONE (17:48)
[2021-12-27] MEDS ORDERED: NORVASC PO ONE (20:04)
[2021-12-27] MEDS ORDERED: VASOTEC IV IVP PRN (20:06)
[2021-12-28] MEDS: SODIUM CHLORIDE 0.9%-KCL 20 MEQ 1,000 ML IV SCH (03:06)
[2021-12-28 05:39] LABS: BASOPHILS % (AUTO) 0.4 % (0.0-3.0); EOSINOPHILS # (AUTO) 0.1 K/ul (0.0-0.7); EOSINOPHILS % (AUTO) 1.5 % (0.0-7.0); HEMATOCRIT 39.1 % (42.0-52.0); HEMOGLOBIN 12.7 g/dl (14.0-18.0); IMMATURE GRANULOCYTE # (AUTO) 0.1 (0.0-1.0); IMMATURE GRANULOCYTE % (AUTO) 1.5 % (0.0-5.0); LYMPHOCYTES # (AUTO) 1.5 K/uL (0.60-3.4); LYMPHOCYTES % (AUTO) 15.4 (10.0-50.0); MEAN CORPUSCULAR HEMOGLOBIN 30.2 pg (27.0-31.0); MEAN CORPUSCULAR HGB CONC 32.5 (31.8-35.4); MEAN CORPUSCULAR VOLUME 92.9 fl (80.0-94.0); MONOCYTES # (AUTO) 0.6 K/uL (0.4-2.0); MONOCYTES % (AUTO) 6.1 (0-10); NEUTROPHILS # (AUTO) 7.2 K/ul (2.0-6.9); NEUTROPHILS % (AUTO) 75.1 % (42.2-75.2); PLATELET COUNT 277 10^3/uL (140-440); RDW COEFFICIENT OF VARIATION 13.4 % (11.6-14.8); RED BLOOD COUNT 4.21 10^6/ul (4.70-6.10); WHITE BLOOD COUNT 9.61 K/ul (4.2-10.2)
[2021-12-28 05:52] VITALS: BP 147/85; TEMP 97.8
[2021-12-28 06:01] LABS: ALANINE AMINOTRANSFERASE 67.6 U/L (0-50); ALBUMIN 2.82 g/dL (3.5-5.0); ALKALINE PHOSPHATASE 100.6 U/L (56-119); ASPARTATE AMINO TRANSFERASE 65.4 U/L (17-59); BILIRUBIN,TOTAL 0.75 mg/dL (0.2-1.3); BLOOD UREA NITROGEN 9.4 mg/dL (9-20); CALCIUM 8.95 mg/dL (8.4-10.2); CARBON DIOXIDE 27.3 mmol/L (22-30.0); CHLORIDE 103.9 mmol/L (98-107); CREATININE 0.8 mg/dL (0.60-1.10); GLUCOSE 111.9 mg/dL (74-106); POTASSIUM 4.07 mmol/L (3.5-5.1); SODIUM 136.3 mmol/L (134.5-145); TOTAL PROTEIN 5.87 g/dL (6.3-8.2)
[2021-12-28] MEDS: SYNTHROID PO SCH ×2 (06:01→06:02)
--- NOTE | 2021-12-28 08:41 | ECHO2D ---
Date of Exam: 12/27/2021 Ordering Physician: HOSPITALIST--BULMARO/ CONSULT DR. JAN BRO Room #: 102 Reason for Echo: BRADYCARDIA/CABG M-Mode Normal Adult Results LV Dimensions Normal Adult Results AoV Opening excursions >1.6 1.7 LVEDD-base- 3.5-5.8 5.5 Ao root dimensions 2.0-3.7 3.6 LVESD-base- 3.1-4.6 L. Atrium dimensions 1.9-3.8 4.0 Post. Wall thickness 0.8-1.1 1.2 IV septum (thickness) 0.7-1.2 1.5 Post. Wall excursion 0.72-1.3 NORMAL Septal motion 0.7 Systolic motion R. Ventricular cavity 1.5-2.0 NORMAL LVEF 60% 45-50% Paradoxical septal wall motion NORMAL 2-D : BORDERLINE LEFT ATRIAL CAVITY/ CALCIFIC AORTIC VALVE LEAFLETS, CALCIFIC MITRAL VALVE ANNULUS, HYPOKINETIC SEPTUM, NO EFFUSION, NO THROMBUS M-MODE: MV: CALCIFIC MITRAL VALVE ANNULUS AV: CALCIFIC AORTIC VALVE LEAFLETS/ NO STENOSIS TV: NORMAL PV: NORMAL CHAMBER SIZE: BORDERLINE LEFT ATRIAL CAVITY WALL MOTION: HYPOKINETIC SEPTUM PERICARDIUM: NORMAL INTERPRETATION: 1. LEFT VENTRICLE HYPERTROPHY WITH BORDERLINE LEFT ATRIAL CAVITY 2. HYPOKINETIC SEPTUM EJECTION FRACTION 45 TO 50% 3. CALCIFIC AORTIC VALVE LEAFLETS--NO STENOSIS 4. CALCIFIC MITRAL VALVE ANNULUS 5. LEFT VENTRICLE CAVITY 5.5 CM MTDD
[2021-12-28] MEDS ORDERED: ROCEPHIN 1 GM/50 ML D5W 1 GM/50 ML BAG IV SCH (09:00)
[2021-12-28] MEDS ORDERED: ZESTRIL PO SCH (09:00)
[2021-12-28] MEDS: ASPIRIN EC PO SCH (09:10)
[2021-12-28] MEDS: K-DUR PO SCH (09:10)
[2021-12-28] MEDS: COREG PO SCH (09:10)
[2021-12-28] MEDS: LOVENOX SUBCUT SCH (09:11)
[2021-12-28] MEDS: ZOCOR PO SCH (09:11)
--- NOTE | 2021-12-28 09:29 | PCM.PROG ---
Date Seen by Provider: 12/28/21 Time Seen by Provider: 09:25 Subjective: pt improved, Dr Houston advises discharge, heart echo lvh, no , hypokinetic septum Objective: Vitals: T=97.8 F, P=62, R=18, JP=723/85, SPO2=96 HEENT: []clear Neck: []supple Lungs: [] clear CVS: []RRR Abdomen: []nondistended Extremities: []mitch Neurological: []alert and oriented Skin: []warm and dry Lab/Tests/Diagnostic Imaging: [] K+ 4.0, wbc 9.6 (1) Acute hypokalemia: Status: Acute Code(s): E87.6 - Hypokalemia SNOMED Code(s): 74960013 Plan: d/c home, see Dr Houston, 01/09, script lisinopril and coreg, return if worse
--- NOTE | 2021-12-28 09:31 | PCM.DC ---
Final Diagnosis: uti Physical Exam Appearance: Well-appearing Ill-appearing: None Pain Distress: None Eyes: Conjunctiva clear ENT: Oropharynx normal Neck: Supple Respiratory: Airway patent Cardiovascular: RRR GI/: Soft and Nontender Musculoskeletal: ROM intact Skin: Warm and Dry Neurological: Alert and Oriented Psychiatric: Affect appropriate (1) Acute hypokalemia: Status: Acute Code(s): E87.6 - Hypokalemia SNOMED Code(s): 11062703 Reason for Hospitalization: uti Prognosis/Condition at Discharge: good Medications at Discharge: Ambulatory Orders Medication Instructions Recorded Carvedilol 6.25 mg PO BID 01/12/19 levothyroxine 137 mcg tablet 137 mcg PO DAILY 01/12/19 lisinopril 20 mg tablet 10 mg PO DAILY 01/12/19 simvastatin 40 mg tablet 60 mg PO DAILY 01/12/19 aspirin 81 mg tablet,delayed 1 tab PO DAILY 01/26/19 release (Aspir-Low) Lab/Diagnostics: K+ 4.0, wbc 9.6 Education Provided to Patient and Family: oral fluids Follow-ups: see Dr Houston 01/09 Discharge Disposition: Home Hospital Course: improved K+ level, blood controlled with change in med strength, no urinary symptoms, no incont Plan: d/c home
== END 2021-12-28 11:50 | disposition home or self-care (01) | DRG 690 ==
LOC: ED 20:13 → MEDSURG A 23:29
PROVIDERS: ADMIT Internal Medicine Geriatric Medicine; ATTEND Emergency Medicine Emergency Medical Services
DX: Z95.1 Presence of aortocoronary bypass graft; Z79.01 Long term (current) use of anticoagulants; E87.6 Hypokalemia; M62.81 Muscle weakness (generalized); Z51.81 Encounter for therapeutic drug level monitoring; N39.0 Urinary tract infection, site not specified; I51.7 Cardiomegaly; Z79.899 Other long term (current) drug therapy; I51.89 Other ill-defined heart diseases; E86.0 Dehydration; R00.1 Bradycardia, unspecified; I10 Essential (primary) hypertension; Z20.822 Contact with and (suspected) exposure to COVID-19

== ENCOUNTER 2022-01-15 11:49 | Inpatient (IN) ==
[2022-01-15 13:06] LABS: BORDETELLA PARAPERTUSSIS (PCR) NOT DETECTED (NOT DETECT); BORDETELLA PERTUSSIS (PCR) NOT DETECTED (NOT DETECT); CHLAMYDIA PNEUMONIAE (PCR) NOT DETECTED (NOT DETECT); CORONAVIRUS 229E (PCR) NOT DETECTED (NOT DETECT); CORONAVIRUS HKU1 (PCR) NOT DETECTED (NOT DETECT); CORONAVIRUS NL63 (PCR) NOT DETECTED (NOT DETECT); CORONAVIRUS OC43 (PCR) NOT DETECTED (NOT DETECT); HUMAN METAPNEUMOVIRUS (PCR) NOT DETECTED (NOT DETECT); HUMAN RHINOVIRUS/ENTEROV (PCR) NOT DETECTED (NOT DETECT); INFLUENZA B (PCR) NOT DETECTED (NOT DETECT); MYCOPLASMA PNEUMONIAE (PCR) NOT DETECTED (NOT DETECT); PARAINFLUENZA VIRUS 1 (PCR) NOT DETECTED (NOT DETECT); PARAINFLUENZA VIRUS 2 (PCR) NOT DETECTED (NOT DETECT); PARAINFLUENZA VIRUS 3 (PCR) NOT DETECTED (NOT DETECT); PARAINFLUENZA VIRUS 4 (PCR) NOT DETECTED (NOT DETECT); RESPIRATORY SYNCYTIAL V (PCR) NOT DETECTED (NOT DETECT); SARS_COV_2 (PCR) NOT DETECTED (NOT DETECT)
[2022-01-15 13:08] LABS: ADENOVIRUS (PCR) NOT DETECTED (NOT DETECT)
[2022-01-15] MEDS ORDERED: TYLENOL PO PRN (13:46)
[2022-01-15] MEDS ORDERED: NITROSTAT SL PRN (13:46)
[2022-01-15] MEDS ORDERED: ATROPINE SULFATE PFS IVP PRN (13:46)
[2022-01-15 13:48] VITALS: BMI 29.2
[2022-01-15] MEDS ORDERED: SODIUM CHLORIDE 1,000 ML IV SCH (14:00)
[2022-01-15 14:08] LABS: BASOPHILS # (AUTO) 0.1 K/uL (0-0.2); BASOPHILS % (AUTO) 0.5 % (0.0-3.0); EOSINOPHILS % (AUTO) 0.3 % (0.0-7.0); HEMATOCRIT 48.1 % (42.0-52.0); HEMOGLOBIN 16.1 g/dl (14.0-18.0); IMMATURE GRANULOCYTE # (AUTO) 0.2 (0.0-1.0); IMMATURE GRANULOCYTE % (AUTO) 1.7 % (0.0-5.0); LYMPHOCYTES # (AUTO) 2.4 K/uL (0.60-3.4); MEAN CORPUSCULAR HEMOGLOBIN 30.1 pg (27.0-31.0); MEAN CORPUSCULAR HGB CONC 33.5 (31.8-35.4); MEAN CORPUSCULAR VOLUME 90.1 fl (80.0-94.0); MONOCYTES # (AUTO) 0.9 K/uL (0.4-2.0); MONOCYTES % (AUTO) 6.4 (0-10); NEUTROPHILS # (AUTO) 10.4 K/ul (2.0-6.9); NEUTROPHILS % (AUTO) 74.1 % (42.2-75.2); PLATELET COUNT 326 10^3/uL (140-440); RED BLOOD COUNT 5.34 10^6/ul (4.70-6.10); WHITE BLOOD COUNT 14.03 K/ul (4.2-10.2)
[2022-01-15 14:19] LABS: ALANINE AMINOTRANSFERASE 67.1 U/L (0-50); ALBUMIN 3.83 g/dL (3.5-5.0); ALKALINE PHOSPHATASE 121.9 U/L (56-119); ASPARTATE AMINO TRANSFERASE 48.6 U/L (17-59); BILIRUBIN,TOTAL 1.5 mg/dL (0.2-1.3); CALCIUM 9.97 mg/dL (8.4-10.2); CARBON DIOXIDE 27.9 mmol/L (22-30.0); CREATINE KINASE 30.6 U/L (55-170); CREATININE 1.47 mg/dL (0.60-1.10); GLUCOSE 143.7 mg/dL (74-106); POTASSIUM 2.99 mmol/L (3.5-5.1); SODIUM 132.6 mmol/L (134.5-145); TOTAL PROTEIN 7.04 g/dL (6.3-8.2)
[2022-01-15 14:30] LABS: TROPONIN I 0.022 ng/ml (0.0000-0.120)
--- NOTE | 2022-01-15 15:09 | US ---
EXAMINATION: BILATERAL CAROTID ULTRASOUND HISTORY: Dizziness. COMPARISON: None. TECHNIQUE: Sonographic evaluation of the bilateral carotid arteries was performed with rico scale and color and spectral Doppler imaging. Ultrasound images were acquired and stored in a permanent [employer] ve. FINDINGS: Plaque distribution: Mild to moderate atherosclerotic calcification at the bilateral carotid bifurcat ions and proximal internal carotid arteries. ICA peak systolic velocity (cm/s): - Right: 81 - Left: 52 ICA end diastolic velocity (cm/s): - Right: 21 - Left: 12 CCA peak systolic velocity (cm/s): - Right: 47 - Left: 38 ECA peak systolic velocity (cm/s): - Right: 52 - Left: 72 Vertebrals: - Right: Antegrade flow with normal waveform. - Left: Antegrade flow with normal waveform. ICA/CCA Systolic Velocity Ratio: - Right: 1.7 - Left: 1.4 Society of Radiologists in Ultrasound (SRU) consensus statement (Radiology 2003; 229:340-346. DOI 10 .[id number]/radiol.[id number]) was used to estimate internal carotid artery stenosis. IMPRESSION: Less than 50% stenosis of the right internal carotid artery. Less than 50% stenosis of the left internal carotid artery. Antegrade flow of the vertebral arteries with normal waveforms.
--- NOTE | 2022-01-15 15:12 | DI ---
EXAM: Chest one view, frontal view only. HISTORY: Shortness of breath. COMPARISON: 12/24/2021, 01/20/2019. FINDINGS: Sternotomy wires noted. The heart size is normal. There is no pulmonary vascular congest ion. The lungs are clear save for calcified granulomatous changes. No pleural effusion or pneumotho rax is seen. No acute osseous abnormality is identified. Since the prior study, there has been no s ignificant interval change. IMPRESSION: No acute cardiopulmonary process.
--- NOTE | 2022-01-15 16:19 | MRI ---
EXAM: MRI of the brain with and without contrast HISTORY: dizziness TECHNIQUE: Multiplanar imaging of the brain was performed using T1, T2, inversion recovery, diffusio n, susceptibility, T2 gradient and postcontrast T1W sequences. FINDINGS: There is no restricted diffusion. The lateral ventricles and cortical sulci are prominent secondary to atrophy. Basal cisterns are patent. Normal flow voids are identified within the basal cisterns. The seventh and eighth cranial nerve complexes are normal. Normal flow signal is identif ied within the dural venous sinuses. Numerous T2 high signal foci are seen throughout the supratento rial white matter and within the varun. No acute hemorrhages are seen. There is no mass effect. The re are no extraaxial collections. No abnormal enhancement is identified within the brain on postcont rast images. The craniocervical junction and midline structures are normal. The soft tissues of the skull base an d nasopharynx appear normal. The paranasal sinuses and mastoid air cells are clear. IMPRESSION: There is no acute cerebral infarction. Moderate chronic small vessel ischemic changes seen throughout the supratentorial white matter and br ainstem. Mild cerebral atrophy..
[2022-01-15] MEDS: K-DUR PO SCH ×2 (17:03→20:19)
[2022-01-15] MEDS: ZESTRIL PO SCH (20:19)
[2022-01-15 22:23] LABS: CREATINE KINASE 30.5 U/L (55-170)
[2022-01-15 22:36] LABS: TROPONIN I 0.029 ng/ml (0.0000-0.120)
[2022-01-16] MEDS: SYNTHROID PO SCH ×2 (05:42)
[2022-01-16 05:48] LABS: BASOPHILS # (AUTO) 0.1 K/uL (0-0.2); BASOPHILS % (AUTO) 0.8 % (0.0-3.0); EOSINOPHILS # (AUTO) 0.2 K/ul (0.0-0.7); EOSINOPHILS % (AUTO) 1.3 % (0.0-7.0); HEMATOCRIT 45.1 % (42.0-52.0); HEMOGLOBIN 15.1 g/dl (14.0-18.0); IMMATURE GRANULOCYTE # (AUTO) 0.2 (0.0-1.0); IMMATURE GRANULOCYTE % (AUTO) 1.7 % (0.0-5.0); LYMPHOCYTES # (AUTO) 2.8 K/uL (0.60-3.4); LYMPHOCYTES % (AUTO) 24.2 (10.0-50.0); MEAN CORPUSCULAR HEMOGLOBIN 30.4 pg (27.0-31.0); MEAN CORPUSCULAR HGB CONC 33.5 (31.8-35.4); MEAN CORPUSCULAR VOLUME 90.7 fl (80.0-94.0); MONOCYTES # (AUTO) 0.9 K/uL (0.4-2.0); NEUTROPHILS # (AUTO) 7.3 K/ul (2.0-6.9); PLATELET COUNT 258 10^3/uL (140-440); RDW COEFFICIENT OF VARIATION 14.4 % (11.6-14.8); RED BLOOD COUNT 4.97 10^6/ul (4.70-6.10); WHITE BLOOD COUNT 11.45 K/ul (4.2-10.2)
[2022-01-16 06:00] LABS: ALANINE AMINOTRANSFERASE 58.7 U/L (0-50); ALBUMIN 3.27 g/dL (3.5-5.0); ASPARTATE AMINO TRANSFERASE 43.5 U/L (17-59); BILIRUBIN,TOTAL 1.37 mg/dL (0.2-1.3); BLOOD UREA NITROGEN 26.8 mg/dL (9-20); CALCIUM 9.34 mg/dL (8.4-10.2); CARBON DIOXIDE 30.4 mmol/L (22-30.0); CHLORIDE 96.7 mmol/L (98-107); CREATININE 1.19 mg/dL (0.60-1.10); GLUCOSE 99.5 mg/dL (74-106); POTASSIUM 3.2 mmol/L (3.5-5.1); SODIUM 133.6 mmol/L (134.5-145); TOTAL PROTEIN 6.2 g/dL (6.3-8.2)
[2022-01-16] MEDS ORDERED: SODIUM CHLORIDE 1,000 ML IV SCH (08:30)
[2022-01-16] MEDS ORDERED: LEVOTHYROXINE 137 MCG PO SCH (09:00)
[2022-01-16] MEDS: ZOCOR PO SCH (09:27)
[2022-01-16] MEDS: K-DUR PO SCH ×4 (09:28→21:23)
[2022-01-16] MEDS: ELIQUIS PO SCH ×2 (09:28→21:23)
[2022-01-16] MEDS: ZESTRIL PO SCH ×3 (09:28→21:23)
--- NOTE | 2022-01-16 09:58 | PCM.PROG ---
Attending Provider: ATTENDING PROVIDER: Dr. JAN BRO This patient is seen with Cassie Wen, Nurse Practitioner. DATE OF SERVICE: 01/16/22 SUBJECTIVE: This 86 year old /WHITE M was hospitalized 01/15/22. The patient is resting comfortably. Has Holter Monitor on. Telemetry showed heart rate low at 29. The patient admitted for fatigue and dizziness. Carotid and MRI of brain were normal, less than 50% stenosis and changes associated with aging only. Potassium is better today. Previous Holter showed atrial fibrillation with a couple three second pauses. REVIEW OF SYSTEMS: CONSTITUTIONAL: No night sweats. Fatigue. No fever or chills. HEENT: Eyes: No visual changes. No eye pain. No eye discharge. ENT: No runny nose. No epistaxis. No sinus pain. No odynophagia. No congestion. RESPIRATORY: No cough, no congestion. No hemoptysis. Shortness of breath. CARDIOVASCULAR: No angina symptoms. No CHF symptoms. No atypical chest pain for CAD. Palpitations. No orthopnea.. GASTROINTESTINAL: No abdominal pain. No nausea or vomiting. No diarrhea or constipation. No hematemesis. No hematochezia. GENITOURINARY: No urgency. No frequency. No dysuria. No hematuria. No obst ructive symptoms. No discharge. No pain. No significant abnormal bleeding. MUSCULOSKELETAL: No musculoskeletal pain; no joint swelling. NEUROLOGICAL: Awake, alert, oriented to time, place and person. No headache. No neck pain. No syncope. No seizures. Dizziness. PSYCHIATRIC: Not anxious. No depression. No suicidal thoughts. No homicidal thoughts. SKIN: No rash. No lesions. No wounds. ENDOCRINE: No unexplained weight loss. No weight gain. HEMATOLOGIC/LYMPHATIC: No anemia. No purpura. No petechiae. No prolonged or excessive bleeding. No palpable lymph nodes. PHYSICAL EXAMINATION: GENERAL: The patient is awake, alert and oriented, lying in bed in no distress. VITAL SIGNS: Temperature 97.5 F, Pulse 42, Respiratory Rate 18, BP 104/64, Pulse Ox 98% HEENT: Head normocephalic, atraumatic. Eyes: Extraocular muscles are intact. Pupils are equal, round and reactive to light and accommodation. Ears: No lesions. Nose appeared normal. Throat: No exudate or erythema. NECK: Supple. No JVD, no carotid bruit. No lymphadenopathy or thyromegaly. LUNGS: Diminished breath sounds. Clear to auscultation. Percussion note normal. Chest symmetrical. HEART: S1, S2, no S3. No murmurs. Irregular heart rate. No cyanosis or clubbing. No ascites. Pulses: Dorsalis pedis and posterior tibial pulses +1 to +2 both sides. ABDOMEN: Soft. Non-tender. Bowel sounds active. No CVA tenderness. No mass felt. EXTREMITIES: Trace leg edema. Full range of motion of all extremities, equal. NEUROLOGIC: No focal deficit. Cranial nerves II through XII are grossly intact. No headache. No double vision. SKIN: Not dry. Intact. Turgor-normal. LYMPHATIC: No palpable lymph nodes/no lymphedema. MUSCULOSKELETAL: Normal joints with no swelling. Muscle tone is normal. LAB REVIEW: 01/16/22 04:55 01/16/22 04:55 01/16/22 04:55: Sodium 133.6 L, Potassium 3.20 L, Chloride 96.7 L, Carbon Dioxide 30.4 H, Anion Gap 9.70, BUN 26.8 H, Creatinine 1.19 H, Estimated GFR (MDRD) 58.00, BUN/Creatinine Ratio 22.52, Glucose 99.5, Calcium 9.34, Total Bilirubin 1.37 H, AST 43.5, ALT 58.7 H, Alkaline Phosphatase 105.0, Total Protein 6.20 L, Albumin 3.27 L, Globulin 2.93, Albumin/Globulin Ratio 1.11 01/16/22 04:55: WBC 11.45 H, RBC 4.97, Hgb 15.1, Hct 45.1, MCV 90.7, MCH 30.4, MCHC 33.5, RDW Coeff of Noah 14.4, Plt Count 258, Immature Gran % (Auto) 1.7, Neut % (Auto) 64.0, Lymph % (Auto) 24.2, Ramsey % (Auto) 8.0, Eos % (Auto) 1.3, Baso % (Auto) 0.8, Neut # (Auto) 7.3 H, Lymph # (Auto) 2.8, Ramsey # (Auto) 0.9, Eos # (Auto) 0.2, Baso # (Auto) 0.1, Immature Gran # (Auto) 0.2 01/15/22 22:05: Total Creatine Kinase 30.5 L, Troponin I 0.029 01/15/22 14:00: Sodium 132.6 L, Potassium 2.99 L, Chloride 93.0 L, Carbon Dioxide 27.9, Anion Gap 14.69, BUN 36.0 H, Creatinine 1.47 H, Estimated GFR (MDRD) 45.00, BUN/Creatinine Ratio 24.48, Glucose 143.7 H, Calcium 9.97, Total Bilirubin 1.50 H, AST 48.6, ALT 67.1 H, Alkaline Phosphatase 121.9 H, Total Creatine Kinase 30.6 L, Troponin I 0.022, Total Protein 7.04, Albumin 3.83, Glob ulin 3.21, Albumin/Globulin Ratio 1.19 01/15/22 13:59: WBC 14.03 H, RBC 5.34, Hgb 16.1, Hct 48.1, MCV 90.1, MCH 30.1, MCHC 33.5, RDW Coeff of Noah 14.0, Plt Count 326, Immature Gran % (Auto) 1.7, Neut % (Auto) 74.1, Lymph % (Auto) 17.0, Ramsey % (Auto) 6.4, Eos % (Auto) 0.3, Ba so % (Auto) 0.5, Neut # (Auto) 10.4 H, Lymph # (Auto) 2.4, Ramsey # (Auto) 0.9, Eos # (Auto) 0.0, Baso # (Auto) 0.1, Immature Gran # (Auto) 0.2 01/15/22 11:55: Adenovirus (PCR) Not detected, B. pertussis DNA (PCR) Not detected, B.parapertussis DNA PCR Not detected, C. pneumoniae DNA (PCR) Not detected, Coronavirus OC43 (PCR) Not detected, Coronavirus HKU1 (PCR) Not detected, Coronavirus 229E (PCR) Not detected, Coronavirus NL63 (PCR) Not detected, Human Metapneumovir PCR Not detected, Influenza Type A (PCR) Not detected, Influenza B (RT-PCR) Not detected, M. pneumoniae (PCR) Not detected, Parainfluenza 1 (PCR) Not detected, Parainfluenza 2 (PCR) Not detected, Parainfluenza 3 (PCR) Not detected, Parainfluenza 4 (PCR) Not detected, RSV (PCR) Not detected, Entero/Rhino (PCR) Not detected, SARS-CoV-2 (PCR) Not detected ASSESSMENT: Please see below. 1. Possible new onset atrial fibrillation 2. Symptomatic bradycardia 3. Hypokalemia 4. Hypotension 5. Leukocytosis PLAN: 1. Finish Holter 2. Normal saline IV 75cc times one liter 3. Eliquis 5mg BID 4. T4, TSH Plan and coordination of the patient's care discussed in the presence of Continuous Improvement Specialist and nurse. SCRIBED BY: MARK BAILEY Gamma Operator scribed while in presence of service performed by Dr. Bro/Cassie Wen APRN on 01/16/22 (0800)
[2022-01-16 10:15] LABS: BILIRUBIN,URINE Negative (NEGATIVE); CLARITY,URINE Clear (CLEAR); COLOR,URINE Yellow (YELLOW); GLUCOSE, URINE (UA) Negative (NEGATIVE); KETONES,URINE Negative (NEGATIVE); LEUKOCYTE ESTERASE ,URINE 1+ (NEGATIVE); NITRITE,URINE Negative (NEGATIVE); PH,URINE 5.5 (5-9); PROTEIN,URINE Negative (NEGATIVE); URINE, BLOOD Trace-intact (NEGATIVE); UROBILINOGEN,URINE 0.2 (0.2)
[2022-01-16 10:40] LABS: SQUAMOUS EPITHELIAL CELL,UR NOT PRESENT (0-5)
[2022-01-16 10:43] LABS: BACTERIA,URINE TRACE (NOT PRESENT); GRANULAR CASTS,URINE 0-2 (NOT PRESENT); MUCUS,URINE 2+ (NOT PRESENT)
--- NOTE | 2022-01-16 12:50 | HP ---
DATE OF SERVICE: 01/15/22 REASON FOR HOSPITALIZATION/HISTORY OF PRESENT ILLNESS: Followup on Holter. The patient complaints of dizziness, weakness and near passing out. without syncope. Appetite is poor. No signs of symptoms of CHF/CAD/COVID. Gained 2 pounds. PAST MEDICAL HISTORY/PAST SURGICAL HISTORY: Atrial fibrillation rate 30-98, Average 45. 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 REVIEW OF SYSTEMS: CONSTITUTIONAL: No fever, Fatigue. HEENT: No sinus drainage, no sore throat. RESPIRATORY: No cough, no congestion. CARDIOVASCULAR: No atypical chest pain for coronary artery disease. No angina, CHF symptoms, palpitations or shortness of breath. GASTROINTESTINAL: No melena or abdominal pain. No GERD. GENITOURINARY: No hematuria, no prostatism, no polyuria. WILD OYSTER HARVESTER: No blackout, Dizziness, no headache, no double vision. GAIT: unsteady. MUSCULOSKELETAL: Osteoarthritis pain, no joint swelling. ENDOCRINE: No weight loss, no weight gain. SKIN: Not dry, no rash. PSYCHIATRIC: Not anxious, no depression, no suicidal thoughts, no homicidal thoughts. SOCIAL HISTORY: Marital Status: . Alcohol Usage: No. Tobacco Usage: No. MEDICATIONS: Levothyroxine 137mcg PO daily Simvastatin 60mg Po daily Lisinopril 20mg PO BID ALLERGIES: Clopidogrel PHYSICAL EXAMINATION: V/S: Pulse 63, blood pressure 112/66, temperature 97.5, oxygen saturation 98%. BMI 29.8, height 5'8 and weight 195.8. GENERAL APPEARANCE: Oriented times three. HEENT: Normal.Pale Mucus membranes. Very hard of hearing. NECK: No JVP, no bruits. RESPIRATORY: Decreased breath sounds. CARDIOVASCULAR: S1, S2, no S3, no murmur. Irregular. No cyanosis, clubbing. No ascites. GI/ABDOMEN: No tenderness. Bowel sounds are active. EXTREMITIES: edema, pulses +1, equal. WILD OYSTER HARVESTER: Deep tendon reflexes, sensory, motor and gait all normal. RECTAL/PELVIC/PROSTATE: . ASSESSMENT: 1. Dizziness 2. Near Syncope 3. Atrial fibrillation with bradyarrhythmia lowest rate 3 4. Atrial fibrillation rate 30-98, Average 45. 5. PVC's 3-4 pauses greater than 2.5 seconds (longest 3.2 second) 6. 2D echo 01/05 Ejection fraction 45-50%, LVH increased LA 4.0, Calcific aortic/Mitral Valve 7. Dyslipidemia 8. Hypotension 9. 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 PLAN: 1. Admit 2. Telemetry 3. Stop Etodolac- Use Tylenol 4. Carotid ultrasound- Dizziness 5. MRI with and without Brain-Dizziness 6. Holter Monitor 7. Routine telemetry orders 8. Resume Home medications 9. CBC and CMP now and daily 10.Regular diet 11.U/A 12.Chest x-ray 13.Normal saline IV at 75cc and hour times one liter. TIME SPENT: More than 70 minutes. MTDD
--- NOTE | 2022-01-16 13:30 | PN ---
DATE OF SERVICE: 01/16/22 SUBJECTIVE: 86 year old white male hospitalized with atrial fibrillation with slow ventricular response. Atrial fibrillation seems to be the new onset. The patient had a Holter Monitor which showed atrial fibrillation with rate of 30-80 per minute average was less than 60. He has been feeling dizzy and light headed. The patient's heart rate seems to be in the range of 30-50. The patient's TSH was recorded as 17 likely not taking his Synthroid at home. The patient says today that he is feeling better. The patient is going to have Holter Monitor taken off at 1:00pm and I will examine that. May give an extra dose of Levothyroxine. Started on Eliquis. CODE: Extensive. TIME SPENT: More than 30 minutes. Plan and coordination of the patient's care discussed in the presence of nurse. DA
[2022-01-17 05:32] LABS: BASOPHILS # (AUTO) 0.1 K/uL (0-0.2); BASOPHILS % (AUTO) 0.8 % (0.0-3.0); EOSINOPHILS # (AUTO) 0.2 K/ul (0.0-0.7); EOSINOPHILS % (AUTO) 1.7 % (0.0-7.0); HEMATOCRIT 41.4 % (42.0-52.0); HEMOGLOBIN 13.6 g/dl (14.0-18.0); IMMATURE GRANULOCYTE # (AUTO) 0.2 (0.0-1.0); IMMATURE GRANULOCYTE % (AUTO) 1.6 % (0.0-5.0); LYMPHOCYTES # (AUTO) 2.2 K/uL (0.60-3.4); LYMPHOCYTES % (AUTO) 20.7 (10.0-50.0); MEAN CORPUSCULAR HEMOGLOBIN 30.2 pg (27.0-31.0); MEAN CORPUSCULAR HGB CONC 32.9 (31.8-35.4); MONOCYTES % (AUTO) 9.4 (0-10); NEUTROPHILS # (AUTO) 7.1 K/ul (2.0-6.9); NEUTROPHILS % (AUTO) 65.8 % (42.2-75.2); PLATELET COUNT 231 10^3/uL (140-440); RDW COEFFICIENT OF VARIATION 14.5 % (11.6-14.8)
[2022-01-17] MEDS: SYNTHROID PO SCH ×2 (05:35)
[2022-01-17 05:44] LABS: ALANINE AMINOTRANSFERASE 43.2 U/L (0-50); ALBUMIN 2.9 g/dL (3.5-5.0); ALKALINE PHOSPHATASE 116.8 U/L (56-119); ASPARTATE AMINO TRANSFERASE 32.9 U/L (17-59); BILIRUBIN,TOTAL 0.81 mg/dL (0.2-1.3); BLOOD UREA NITROGEN 21.1 mg/dL (9-20); CALCIUM 8.97 mg/dL (8.4-10.2); CARBON DIOXIDE 26.7 mmol/L (22-30.0); CHLORIDE 102.4 mmol/L (98-107); CREATININE 1.1 mg/dL (0.60-1.10); GLUCOSE 85.6 mg/dL (74-106); POTASSIUM 3.56 mmol/L (3.5-5.1); SODIUM 133.9 mmol/L (134.5-145); TOTAL PROTEIN 5.55 g/dL (6.3-8.2)
[2022-01-17] MEDS: ELIQUIS PO SCH ×2 (09:21→20:32)
[2022-01-17] MEDS: ZOCOR PO SCH (09:21)
[2022-01-17] MEDS: K-DUR PO SCH ×4 (09:22→20:32)
[2022-01-17] MEDS: ZESTRIL PO SCH ×2 (09:22→20:31)
[2022-01-17] MEDS ORDERED: SYNTHROID PO ONE (11:55)
[2022-01-17] MEDS ORDERED: VANCOMYCIN 1 GRAM/200 ML PREMIX 1 GM/200 ML BAG IV ONE (11:58)
[2022-01-18 05:40] LABS: BASOPHILS # (AUTO) 0.1 K/uL (0-0.2); BASOPHILS % (AUTO) 0.6 % (0.0-3.0); EOSINOPHILS # (AUTO) 0.2 K/ul (0.0-0.7); EOSINOPHILS % (AUTO) 1.7 % (0.0-7.0); HEMATOCRIT 40.7 % (42.0-52.0); HEMOGLOBIN 13.2 g/dl (14.0-18.0); IMMATURE GRANULOCYTE # (AUTO) 0.1 (0.0-1.0); IMMATURE GRANULOCYTE % (AUTO) 1.3 % (0.0-5.0); LYMPHOCYTES # (AUTO) 2.4 K/uL (0.60-3.4); LYMPHOCYTES % (AUTO) 24.3 (10.0-50.0); MEAN CORPUSCULAR HEMOGLOBIN 30.3 pg (27.0-31.0); MEAN CORPUSCULAR HGB CONC 32.4 (31.8-35.4); MEAN CORPUSCULAR VOLUME 93.6 fl (80.0-94.0); MONOCYTES # (AUTO) 1.1 K/uL (0.4-2.0); MONOCYTES % (AUTO) 10.6 (0-10); NEUTROPHILS # (AUTO) 6.1 K/ul (2.0-6.9); NEUTROPHILS % (AUTO) 61.5 % (42.2-75.2); PLATELET COUNT 213 10^3/uL (140-440); RDW COEFFICIENT OF VARIATION 14.6 % (11.6-14.8); RED BLOOD COUNT 4.35 10^6/ul (4.70-6.10); WHITE BLOOD COUNT 9.93 K/ul (4.2-10.2)
[2022-01-18] MEDS: SYNTHROID PO SCH ×2 (05:44)
[2022-01-18 06:01] LABS: ALANINE AMINOTRANSFERASE 39.4 U/L (0-50); ALBUMIN 2.92 g/dL (3.5-5.0); ALKALINE PHOSPHATASE 123.5 U/L (56-119); ASPARTATE AMINO TRANSFERASE 29.9 U/L (17-59); BILIRUBIN,TOTAL 0.57 mg/dL (0.2-1.3); BLOOD UREA NITROGEN 16.9 mg/dL (9-20); CALCIUM 9.49 mg/dL (8.4-10.2); CARBON DIOXIDE 29.3 mmol/L (22-30.0); CHLORIDE 102.5 mmol/L (98-107); CREATININE 1.07 mg/dL (0.60-1.10); GLUCOSE 81.2 mg/dL (74-106); POTASSIUM 4.53 mmol/L (3.5-5.1); SODIUM 134.9 mmol/L (134.5-145); TOTAL PROTEIN 5.62 g/dL (6.3-8.2)
[2022-01-18] MEDS ORDERED: SYNTHROID PO ONE (06:30)
--- NOTE | 2022-01-18 09:33 | PCM.PROG ---
Attending Provider: ATTENDING PROVIDER: Dr. JAN HOUSTON This patient is seen with Cassie Wen, Nurse Practitioner. DATE OF SERVICE: 01/18/22 SUBJECTIVE: This 86 year old /WHITE M was hospitalized 01/15/22. HGB at 13.2 with 16.1 on admission. Has had one to two liters of IV fluids. We will keep till tomorrow and monitor hgb. Extra Synthroid today. We will start him on Protonix. REVIEW OF SYSTEMS: CONSTITUTIONAL: No night sweats. No fatigue, malaise, lethargy. No fever or chills. Weakness. HEENT: Eyes: No visual changes. No eye pain. No eye discharge. ENT: No runny nose. No epistaxis. No sinus pain. No odynophagia. No congestion. Hard of hearing. RESPIRATORY: No cough, no congestion. No hemoptysis. No shortness of breath. CARDIOVASCULAR: No angina symptoms. No CHF symptoms. No atypical chest pain for CAD. No palpitations. No orthopnea. Bradycardia. GASTROINTESTINAL: No abdominal pain. No nausea or vomiting. No diarrhea or constipation. No hematemesis. No hematochezia. GENITOURINARY: No urgency. No frequency. No dysuria. No hematuria. No obstructive symptoms. No discharge. No pain. No significant abnormal bleeding. MUSCULOSKELETAL: No musculoskeletal pain; no joint swelling. NEUROLOGICAL: Awake, alert, oriented to time, place and person. No headache. No neck pain. No syncope. No seizures. No dizziness. PSYCHIATRIC: Not anxious. No depression. No suicidal thoughts. No homicidal thoughts. SKIN: No rash. No lesions. No wounds. ENDOCRINE: No unexplained weight loss. No weight gain. HEMATOLOGIC/LYMPHATIC: No anemia. No purpura. No petechiae. No prolonged or excessive bleeding. No palpable lymph nodes. PHYSICAL EXAMINATION: GENERAL: The patient is awake, alert and oriented, sitting in bed in no distress. VITAL SIGNS: Temperature 98 F, Pulse 42, Respiratory Rate 17, BP 130/71, Pulse Ox 98% HEENT: Head normocephalic, atraumatic. Eyes: Extraocular muscles are intact. Pupils are equal, round and reactive to light and accommodation. Ears: No lesions. Nose appeared normal. Throat: No exudate or erythema. NECK: Supple. No JVD, no carotid bruit. No lymphadenopathy or thyromegaly. LUNGS: Clear to auscultation. Percussion note normal. Chest symmetrical. HEART: S1, S2, no S3. No murmurs. No cyanosis or clubbing. No ascites. Pulses: Dorsalis pedis and posterior tibial pulses +1 to +2 both sides. ABDOMEN: Soft. Non-tender. Bowel sounds active. No CVA tenderness. No mass felt. EXTREMITIES: No edema. Full range of motion of all extremities, equal. NEUROLOGIC: No focal deficit. Cranial nerves II through XII are grossly intact. No headache. No double vision. SKIN: Not dry. Intact. Turgor-normal. LYMPHATIC: No palpable lymph nodes/no lymphedema. MUSCULOSKELETAL: Normal joints with no swelling. Muscle tone is normal. LAB REVIEW: 01/18/22 04:57 01/18/22 04:57 01/18/22 04:57: Sodium 134.9, Potassium 4.53, Chloride 102.5, Carbon Dioxide 29.3, Anion Gap 7.63, BUN 16.9, Creatinine 1.07, Estimated GFR (MDRD) 65.00, BUN/Creatinine Ratio 15.79, Glucose 81.2, Calcium 9.49, Total Bilirubin 0.57, AST 29.9, ALT 39.4, Alkaline Phosphatase 123.5 H, Total Protein 5.62 L, Albumin 2.92 L, Globulin 2.70, Albumin/Globulin Ratio 1.08 01/18/22 04:57: WBC 9.93, RBC 4.35 L, Hgb 13.2 L, Hct 40.7 L, MCV 93.6, MCH 30.3, MCHC 32.4, RDW Coeff of Noah 14.6, Plt Count 213, Immature Gran % (Auto) 1.3, Neut % (Auto) 61.5, Lymph % (Auto) 24.3, Glades % (Auto) 10.6 H, Eos % (Auto) 1.7, Baso % (Auto) 0.6, Neut # (Auto) 6.1, Lymph # (Auto) 2.4, Glades # (Auto) 1.1, Eos # (Auto) 0.2, Baso # (Auto) 0.1, Immature Gran # (Auto) 0.1 ASSESSMENT: Please see below. 1. Atrial fibrillation with slow ventricular response 2. Symptomatic Bradycardia 3. Hypothyroidism 4. Noncompliance with medications. PLAN: 1. Discharge tomorrow 2. Protonix 40mg daily 3. He has been referred to Dr. Perez 4. The patient will have event monitor placed prior to discharge tomorrow. Plan and coordination of the patient's care discussed in the presence of Strategic Analyst and nurse. SCRIBED BY: Kelsi MCDUFFIE scribed while in presence of service performed by Dr. Houston/Cassie Wen APRN on 01/18/22 (0800)
[2022-01-18] MEDS: ZOCOR PO SCH (10:14)
[2022-01-18] MEDS: ZESTRIL PO SCH ×2 (10:17→20:52)
[2022-01-18] MEDS: PROTONIX PO SCH (10:18)
[2022-01-18] MEDS: MIRALAX PO SCH (10:20)
[2022-01-18] MEDS: ELIQUIS PO SCH ×2 (10:21→20:53)
[2022-01-18] MEDS: K-DUR PO SCH ×4 (10:25→20:52)
[2022-01-18] MEDS ORDERED: CITRATE OF MAGNESIA PO ONE (14:22)
[2022-01-19 05:04] LABS: BASOPHILS # (AUTO) 0.1 K/uL (0-0.2); BASOPHILS % (AUTO) 0.8 % (0.0-3.0); EOSINOPHILS # (AUTO) 0.1 K/ul (0.0-0.7); EOSINOPHILS % (AUTO) 1.3 % (0.0-7.0); HEMATOCRIT 37.8 % (42.0-52.0); HEMOGLOBIN 12.4 g/dl (14.0-18.0); IMMATURE GRANULOCYTE # (AUTO) 0.1 (0.0-1.0); LYMPHOCYTES # (AUTO) 2.4 K/uL (0.60-3.4); LYMPHOCYTES % (AUTO) 24.7 (10.0-50.0); MEAN CORPUSCULAR HEMOGLOBIN 30.8 pg (27.0-31.0); MEAN CORPUSCULAR HGB CONC 32.8 (31.8-35.4); MEAN CORPUSCULAR VOLUME 93.8 fl (80.0-94.0); MONOCYTES # (AUTO) 0.9 K/uL (0.4-2.0); MONOCYTES % (AUTO) 8.8 (0-10); NEUTROPHILS # (AUTO) 6.2 K/ul (2.0-6.9); NEUTROPHILS % (AUTO) 63.4 % (42.2-75.2); PLATELET COUNT 209 10^3/uL (140-440); RDW COEFFICIENT OF VARIATION 14.7 % (11.6-14.8); RED BLOOD COUNT 4.03 10^6/ul (4.70-6.10); WHITE BLOOD COUNT 9.75 K/ul (4.2-10.2)
[2022-01-19 05:19] LABS: ALANINE AMINOTRANSFERASE 34.3 U/L (0-50); ALKALINE PHOSPHATASE 108.3 U/L (56-119); ASPARTATE AMINO TRANSFERASE 28.6 U/L (17-59); BILIRUBIN,TOTAL 0.72 mg/dL (0.2-1.3); BLOOD UREA NITROGEN 13.9 mg/dL (9-20); CALCIUM 9.6 mg/dL (8.4-10.2); CARBON DIOXIDE 30.2 mmol/L (22-30.0); CHLORIDE 101.9 mmol/L (98-107); CREATININE 0.89 mg/dL (0.60-1.10); GLUCOSE 87.3 mg/dL (74-106); POTASSIUM 5.19 mmol/L (3.5-5.1); SODIUM 135.3 mmol/L (134.5-145); TOTAL PROTEIN 5.79 g/dL (6.3-8.2)
[2022-01-19 05:47] LABS: THYROID STIMULATING HORMONE 18.3 uIU/L (0.465-4.68)
[2022-01-19 06:07] VITALS: BP 130/84; TEMP 97.6
[2022-01-19] MEDS: SYNTHROID PO SCH ×2 (06:11)
[2022-01-19] MEDS: PROTONIX PO SCH (06:11)
[2022-01-19] MEDS ORDERED: SYNTHROID PO STA (09:05)
[2022-01-19] MEDS: K-DUR PO SCH (09:22)
[2022-01-19] MEDS: ZOCOR PO SCH (09:23)
[2022-01-19] MEDS: ZESTRIL PO SCH (09:23)
[2022-01-19] MEDS: ELIQUIS PO SCH (09:23)
[2022-01-19] MEDS: MIRALAX PO SCH (09:24)
--- NOTE | 2022-01-19 09:44 | PCM.PROG ---
Attending Provider: ATTENDING PROVIDER: Dr. JAN BRO DATE OF SERVICE: 01/19/22 SUBJECTIVE: This 86 year old /WHITE M was hospitalized 01/15/22 with new onset of atrial fibrillation and rob arrhythmia. Heart rate is now lower than on admission. The patient was dizzy, light headed and weak. MRI of the head was negative. States he is feeling a lot better and stronger. Says he is 100% better. Telemetry lately showing faster rate but slower than on admission. TSH still high in spite of extra 50mcg of Levothyroxin REVIEW OF SYSTEMS: CONSTITUTIONAL: No night sweats. No fatigue, malaise, lethargy. No fever or chills. HEENT: Eyes: No visual changes. No eye pain. No eye discharge. ENT: No runny nose. No epistaxis. No sinus pain. No odynophagia. No congestion. RESPIRATORY: No cough, no congestion. No hemoptysis. No shortness of breath. CARDIOVASCULAR: No angina symptoms. No CHF symptoms. No atypical chest pain for CAD. No palpitations. No orthopnea.. GASTROINTESTINAL: No abdominal pain. No nausea or vomiting. No diarrhea or constipation. No hematemesis. No hematochezia. GENITOURINARY: No urgency. No frequency. No dysuria. No hematuria. No obstructive symptoms. No discharge. No pain. No significant abnormal bleeding. MUSCULOSKELETAL: No musculoskeletal pain; no joint swelling. NEUROLOGICAL: Awake, alert, oriented to time, place and person. No headache. No neck pain. No syncope. No seizures. No dizziness. PSYCHIATRIC: Not anxious. No depression. No suicidal thoughts. No homicidal thoughts. SKIN: No rash. No lesions. No wounds. ENDOCRINE: No unexplained weight loss. No weight gain. HEMATOLOGIC/LYMPHATIC: No anemia. No purpura. No petechiae. No prolonged or excessive bleeding. No palpable lymph nodes. PHYSICAL EXAMINATION: GENERAL: The patient is awake, alert and oriented, sitting in bed in no distress. VITAL SIGNS: Temperature 97.6 F, Pulse 49, Respiratory Rate 20, BP 130/84, Pulse Ox 100% HEENT: Head normocephalic, atraumatic. Eyes: Extraocular muscles are intact. Pupils are equal, round and reactive to light and accommodation. Ears: No lesions. Nose appeared normal. Throat: No exudate or erythema. Hard of hearing. NECK: Supple. No JVD, no carotid bruit. No lymphadenopathy or thyromegaly. LUNGS: Clear to auscultation. Percussion note normal. Chest symmetrical. HEART: S1, S2, no S3. No murmurs. No cyanosis or clubbing. No ascites. Pulses: Dorsalis pedis and posterior tibial pulses +1 to +2 both sides. ABDOMEN: Soft. Non-tender. Bowel sounds active. No CVA tenderness. No mass felt. EXTREMITIES: No edema. Full range of motion of all extremities, equal. NEUROLOGIC: No focal deficit. Cranial nerves II through XII are grossly intact. No headache, no double vision or headache. SKIN: Warm and dry. Intact. Turgor-normal. LYMPHATIC: No palpable lymph nodes/no lymphedema. MUSCULOSKELETAL: Normal joints with no swelling. Muscle tone is normal. LAB REVIEW: 01/19/22 04:58 01/19/22 04:58 01/19/22 04:58: Free T4 0.88 01/19/22 04:58: Sodium 135.3, Potassium 5.19 H, Chloride 101.9, Carbon Dioxide 30.2 H, Anion Gap 8.39, BUN 13.9, Creatinine 0.89, Estimated GFR (MDRD) 81.00, BUN/Creatinine Ratio 15.61, Glucose 87.3, Calcium 9.60, Total Bilirubin 0.72, AST 28.6, ALT 34.3, Alkaline Phosphatase 108.3, Total Protein 5.79 L, Albumin 3.00 L, Globulin 2.79, Albumin/Globulin Ratio 1.07, TSH 18.300 H 01/19/22 04:58: WBC 9.75, RBC 4.03 L, Hgb 12.4 L, Hct 37.8 L, MCV 93.8, MCH 30.8, MCHC 32.8, RDW Coeff of Noah 14.7, Plt Count 209, Immature Gran % (Auto) 1.0, Neut % (Auto) 63.4, Lymph % (Auto) 24.7, Forrest % (Auto) 8.8, Eos % (Auto) 1.3, Baso % (Auto) 0.8, Neut # (Auto) 6.2, Lymph # (Auto) 2.4, Forrest # (Auto) 0.9, Eos # (Auto) 0.1, Baso # (Auto) 0.1, Immature Gran # (Auto) 0.1 ASSESSMENT: Please see below. 1. Atrial fibrillation with slow ventricular response but patient's rate is faster 2. Thyroid dose needs to increased on discharge to 150mcg of Levothyroxine and give 50mcg dose extra. PLAN: 1. Discharge home on 150mcg daily. This was communicated through manager digital about all these changes. 2. The patient's appetite has improved. 3. Mental status is normal 4. Already has appointment to see Dr. Perez 5. Decrease Lisinopril to 10mg BID 6. Levothyroxine 150mcg daily 7. No Coreg 8. Continue Eliquis 5mg PO BID Plan and coordination of the patient's care discussed in the presence of Kiss Setter Hand and nurse. SCRIBED BY: MARK BAILEY Resin Maker scribed while in presence of service performed by Dr. JAN BRO on 01/19/22 ([id number])
--- NOTE | 2022-01-19 11:18 | PN ---
DATE OF SERVICE: 01/18/22 SUBJECTIVE: The patient was seen and examined with the Nurse Practitioner. The patient's hgb had fallen some, no evidence of GI bleed but when the patient came and he was dehydrated he started eating better. His heart rate seems to have improved with no pauses noted. The patient will have event monitor on Saturday. Condition stable. TIME SPENT: More than 30 minutes. Plan and coordination of the patient's care discussed in the presence of nurse. DA
--- NOTE | 2022-01-19 13:45 | PN ---
DATE OF SERVICE: 01/17/22 SUBJECTIVE: 78 year old white male hospitalized with severe rob arrhythmia. Holter done as an outpatient. His heart rate was 30 to 45 per minute. He has been feeling extremely fatigue and tired. Now for past two days in the hospital he is feeling a lot better. Slowest heart rate was noted was 32 per minute no pauses more than 2.5 seconds. Rob arrhythmias would last for 20-30 minutes at at time. The blood pressure is being support very well with it close to 100-120. REVIEW OF SYSTEMS: CONSTITUTIONAL: No night sweats. No fatigue, malaise, lethargy. No fever or chills. HEENT: Eyes: No visual changes. No eye pain. No eye discharge. ENT: No runny nose. No epistaxis. No sinus pain. No sore throat. No odynophagia. No congestion. RESPIRATORY: No cough, no congestion. No hemoptysis. No shortness of breath. CARDIOVASCULAR: No angina symptoms. No CHF symptoms. No atypical chest pain for CAD. No palpitations. No PND. No orthopnea. GASTROINTESTINAL: No abdominal pain. No nausea or vomiting. No diarrhea or constipation. No hematemesis. No hematochezia. GENITOURINARY: No urgency. No frequency. No dysuria. No hematuria. No obstructive symptoms. No discharge. No pain. No significant abnormal bleeding. MUSCULOSKELETAL: No musculoskeletal pain; no joint swelling. NEUROLOGICAL: No headache. No neck pain. No syncope. No seizures. No dizziness. PSYCHIATRIC: Not anxious. No depression. No suicidal thoughts. No homicidal thoughts. SKIN: No rash. No lesions. No wounds. ENDOCRINE: No unexplained weight loss. No weight gain. HEMATOLOGIC/LYMPHATIC: No anemia. No purpura. No petechiae. No prolonged or excessive bleeding. No palpable lymph nodes. PHYSICAL EXAMINATION: VITAL SIGNS: Temperature 97.5, pulse 40, respiratory rate 18, blood pressure 108/64 and pulse ox 98%. HEENT: Head normocephalic, atraumatic. Eyes: Extraocular muscles are intact. Pupils are equal, round and reactive to light and accommodation. Ears: No lesions. Nose appeared normal. Throat: No exudate or erythema. NECK: Supple. No JVD, no carotid bruit. No lymphadenopathy or thyromegaly. LUNGS: Clear to auscultation. Percussion note normal. Chest symmetrical. HEART: S1, S2, no S3. No murmurs. No cyanosis or clubbing. No ascites. Pulses: Dorsalis pedis and posterior tibial pulses +1 to +2 bilaterally. ABDOMEN: Soft. Nontender. Bowel sounds active. No CVA tenderness. No mass felt. EXTREMITIES: No edema. Full range of motion of all extremities, equal. NEUROLOGIC: No focal deficit. Cranial nerves II through XII are grossly intact. No headache. No double vision. SKIN: Not dry. Intact. Turgor - normal. LYMPHATIC: No palpable lymph nodes/no lymphedema. MUSCULOSKELETAL: Normal joints with no swelling. Muscle tone is normal. LABS: Hgb 13.6, hct 41, WBC 10,800normal differential, creatinine 1.1, BUN 21, potassium 3.5. TSH 01/16/22 was 17 it has been given his Levothyroxine for last 2 days now. Will give 50mcg of Levothyroxine is given today. PLAN: 1. The patient is going to be started on Zestril 10mg twice a day from tomorrow. 2. K-tab 20meq twice a day was given for Potassium of 3.5. 3. The patient will under go event monitor as an outpatient. 4. The patient has already been referred to Dr. Perez. TIME SPENT: More than 30 minutes. Plan and coordination of the patient's care discussed in the presence of nurse. DA
--- NOTE | 2022-01-24 11:45 | DS ---
DATE OF SERVICE: 01/19/22 FINAL DIAGNOSIS: 1. 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 Hypothyroidism 3. History of coronary bypass surgery Dr. Marshall/Dr. Morejon 4. Hypertension 5. Dyslipidemia 6. 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 LA cavity 4cm, LV 5.5cm 7. Status post cholecystectomy 8. Hard of hearing. DISCHARGE INSTRUCTIONS: Discharge home. MEDICATIONS AT DISCHARGE: Levoxine dose increased to 150mcg PO daily Simvastatin 60mg PO daily Lisinopril 10mg twice a day Protonix 40mg PO daily Eliquis 5mg PO twice a day Nitroglycerin PRN SUBCUT for chest pain. LABS: Hgb 12.4, hct 37, WBC 9,700 normal differential, creatinine 0.8, BUN 13, potassium 5.1. TSH on the day of discharge 18 normally up to 5. T4 was 0.88 which is low limit of normal. It is to be noted that the patient has been given 50mcg extra dose on top of 138 his own dose the last three days. HOSPITAL COURSE: 86 year old white male hospitalized through the office after he was seen on followup with complaint of having fatigue, dizziness and tired feeling. Holter monitor done as an outpatient showed rate into lower 30, maximum of 100 per minute with average of 45 beats per minute. Had three to four pauses of greater than 2.5second. The longest pause of 3.2 seconds was noted in machine shorthand reporter hours, practically not symptomatic from it, shows atrial fibrillation. It is to be noted that the patient was in sinus rhythm when I first saw him on consultation on 12/24/21 and that time had heart rate into 40s with pause of more than 2 seconds and was practically asymptomatic with his blood pressure being 140 to 160s systolic. Practically throughout the hospital stay. In any case it is likely that the patient had stopped taking his thyroid medications. The patient has been given supplements of thyroid along with his usual dose. The son was explained along with the patient to take his medications on regular basis. He was taken off Coreg during the stay in the hospital. On the second day the patient felt a lot better and he has been feeling much better. He is up and about and no black out spells were noted throughout the stay in the hospital especially last 48 hours the patient did not have any pauses greater than 2 seconds on Telemetry but the heart rates were noted to be 35 to 45 during machine shorthand reporter early hours when the patient was at sleep. The patient has been referred to Dr. Perez. The patient's Levothyroxine dose has been increased to 150mcg. He is to be followed as an outpatient with TSH. Event monitor for 15 days has been scheduled to be put on two days after discharge. The patient of course is not driving, the son is reliable CONDITION: Stable TIME SPENT: More than 60 minutes. MTDD
--- NOTE | 2022-01-24 11:46 | PN ---
01/15/22: Level 5 01/16/22: Intermediate 01/17/22: Intermediate 01/18/22: Intermediate 01/19/22: D as in discharge MTDD
== END 2022-01-19 13:30 | disposition home or self-care (01) | DRG 309 ==
LOC: LAB 11:49 → MEDSURG A 13:16
PROVIDERS: ADMIT Internal Medicine; ATTEND Internal Medicine
DX: Z20.822 Contact with and (suspected) exposure to COVID-19; E87.6 Hypokalemia; H91.90 Unspecified hearing loss, unspecified ear; E03.9 Hypothyroidism, unspecified; D72.829 Elevated white blood cell count, unspecified; R42 Dizziness and giddiness; R00.1 Bradycardia, unspecified; I50.1 Left ventricular failure, unspecified; I95.9 Hypotension, unspecified; Z79.899 Other long term (current) drug therapy; Z95.1 Presence of aortocoronary bypass graft; I48.0 Paroxysmal atrial fibrillation; Z91.14 Patient's other noncompliance with medication regimen; E78.5 Hyperlipidemia, unspecified; Z79.01 Long term (current) use of anticoagulants; Z51.81 Encounter for therapeutic drug level monitoring; I10 Essential (primary) hypertension